=== PATIENT | female | born 1995 | race Caucasian/White ===

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

== ENCOUNTER 2019-01-29 07:22 | Outpatient (CLI) | payer OTHER | END 2019-01-29 07:23 | disposition critical access hospital (66) | LOC: EMS 07:22 | PROVIDERS: ATTEND Surgery | DX: R56.9 Unspecified convulsions (principal) | CPT/HCPCS: A0425; A0427 ==

== ENCOUNTER 2019-01-29 08:01 | Emergency (ER) | payer OTHER ==
[2019-01-29] MEDS ORDERED: ONDANSETRON 4 MG/2 ML VIAL IVP STA (08:20)
[2019-01-29] MEDS ORDERED: KETOROLAC 30 MG/ML VIAL IVP STA (08:20)
[2019-01-29] MEDS ORDERED: SODIUM CHLORIDE 0.9% 1,000 ML IV ONE (08:20)
--- NOTE | 2019-01-29 08:22 | ED Physician Documentation ---
PD HPI SEIZURE - Stated complaint Stated Complaint: POSS SZ - Chief complaint Chief Complaint: General - History obtained from History obtained from: Patient, Friend, EMS - History of Present Illness Timing - onset: How many minutes ago Witnessed: Witnessed (The patient was standing in the kitchen making some food and felt a little bit lightheaded abruptly. Her partner heard a thud from the other room and came immediately in and saw the patient on the ground on the floor with general seizure movement activity and some snoring breathing and some this ulceration of the lips. This lasted for just less than a minute and then she seemed a little confused for a few minutes and then became more alert. She was able to answer questions fairly clearly by the time of EMS arrival. She did have some headache. She complained of some neck and upper back pain. She denied any prior similar episodes. She had been feeling well otherwise the last few days with normal food and fluid intake and no fever chills or other illness. She had been on Wellbutrin for the past month or so for treatment of depression and states it also helped with smoking cessation as an unplanned benefit. She had increased dose a couple weeks ago and had been feeling okay with it. No other medications.) Number of seizures: Single, Lasted minutes (1) Description of seizure activity: Generalized Injury during seizure: Fell, Head injury, Neck injury Associated symptoms: Headache. No: Vision changes, Chest pain, Dyspnea, Nausea / vomiting History of seizures: First seizure. No: Known seizure disorder Contributing factors: Other (new medication a month ago, Wellbutrin. No other medications.). No: Low blood sugar, Substance abuse, EtOH withdrawal, Fever, Sleep deprivation Similar symptoms before: Has not had sx before Review of Systems Constitutional: denies: Fever, Chills, Myalgias Nose: denies: Rhinorrhea / runny nose, Congestion Throat: denies: Sore throat Cardiac: denies: Chest pain / pressure, Palpitations Respiratory: denies: Dyspnea, Cough GI: denies: Abdominal Pain, Nausea, Vomiting, Diarrhea Skin: denies: Abrasion (s), Laceration (s) Neurologic: denies: Focal weakness, Numbness, Altered mental status PD PAST MEDICAL HISTORY - Past Medical History Cardiovascular: None Respiratory: None Neuro: None Endocrine/Autoimmune: None Psych: Depression, Anxiety - Past Surgical History Past Surgical History: Yes General: Appendectomy - Present Medications Home Medications: Ambulatory Orders Medication Instructions Recorded Confirmed Norgestrel-Ethinyl Estradiol 1 tab PO DAILY 09/07/14 09/07/14 [Elinest-28 Tablet] RX: Ibuprofen 600 mg PO Q6H PRN #30 tablet 09/07/14 RX: lamoTRIgine [LaMICtal] 100 mg PO DAILY 09/07/14 09/07/14 Sertraline HCl [Zoloft] 100 mg PO DAILY 09/07/14 09/07/14 Sulfamethoxazole/Trimethoprim 1 tab PO DAILY 09/07/14 09/07/14 [Bactrim Ds Tablet] - Allergies Allergies/Adverse Reactions: Allergies Allergy/AdvReac Type Severity Reaction Status Date / Time Sulfa (Sulfonamide Allergy Hives Verified 01/29/19 08:06 Antibiotics) - Social History Does the pt smoke?: No Smoking Status: Former smoker Does the pt drink ETOH?: No Does the pt have substance abuse?: No - Immunizations Immunizations are current?: Yes PD ED PE NORMAL - Vitals Vital signs reviewed: Yes - General General: Alert and oriented X 3, No acute distress, Well developed/nourished - HEENT HEENT: PERRL, EOMI, Ears normal, Pharynx benign, Other (Some tenderness in the back of the head. There is also some tenderness in the lower cervical area and upper thoracic. No obvious deformity. She has a normal neuro exam with motor and sensory. She is awake and conversant.) - Neck Neck: Supple, no meningeal sign, No adenopathy - Cardiac Cardiac: RRR, No murmur - Respiratory Respiratory: Clear bilaterally - Abdomen Abdomen: Soft, Non tender - Derm Derm: Normal color, Warm and dry - Extremities Extremities: No tenderness to palpate, Normal ROM s pain - Neuro Neuro: Alert and oriented X 3, otorhinolaryngologist 2-12 intact, No motor deficit, No sensory deficit, Normal speech, Other Eye Opening: Spontaneous Motor: Obeys Commands Verbal: Oriented GCS Score: 15 - Psych Psych: Normal mood, Normal affect Results - Vitals Vitals: Vital Signs - 24 hr 01/29/19 01/29/19 01/29/19 08:02 09:24 09:59 Temperature 36.8 C 36.6 C Heart Rate 110 H 91 87 Respiratory 22 15 17 Rate Blood Pressure 136/99 H 118/78 123/78 O2 Saturation 100 100 100 Oxygen O2 Source Room air - Labs Labs: Laboratory Tests 01/29/19 01/29/19 01/29/19 08:28 08:28 08:47 WBC 6.1 RBC 3.86 L Hgb 11.7 L Hct 34.3 L MCV 88.9 MCH 30.3 MCHC 34.1 RDW 12.7 Plt Count 265 MPV 8.2 Neut # (Auto) 3.6 Lymph # (Auto) 1.8 [place] # (Auto) 0.5 Eos # (Auto) 0.2 Baso # (Auto) 0.0 Absolute Nucleated RBC 0.00 Nucleated RBC % 0.0 Sodium 138 Potassium 4.0 Chloride 109 Carbon Dioxide 21 Anion Gap 8.0 BUN 12 Creatinine 0.8 Estimated GFR (MDRD) 91 Glucose 107 H Calcium 8.7 Magnesium 1.9 Total Bilirubin 0.2 AST 16 ALT 23 Alkaline Phosphatase 32 L Total Protein 7.1 Albumin 3.9 Globulin 3.2 Albumin/Globulin Ratio 1.2 Lipase 20 L Urine Color Urine Clarity Urine pH Ur Specific [place] Urine Protein Urine Glucose (UA) Urine Ketones Urine Occult Blood Urine Nitrite Urine Bilirubin Urine Urobilinogen Ur Leukocyte Esterase Ur Microscopic Review Urine Culture Comments Urine HCG, Qual Urine Opiates Screen NEGATIVE Ur Oxycodone Screen NEGATIVE Urine Methadone Screen NEGATIVE Ur Propoxyphene Screen NEGATIVE Ur Barbiturates Screen NEGATIVE Ur Tricyclics Screen NEGATIVE Ur Phencyclidine Scrn NEGATIVE Ur Amphetamine Screen NEGATIVE U Methamphetamines Scrn NEGATIVE U Benzodiazepines Scrn NEGATIVE Urine Cocaine Screen NEGATIVE U Cannabinoids Screen NEGATIVE 01/29/19 08:47 WBC RBC Hgb Hct MCV MCH MCHC RDW Plt Count MPV Neut # (Auto) Lymph # (Auto) [place] # (Auto) Eos # (Auto) Baso # (Auto) Absolute Nucleated RBC Nucleated RBC % Sodium Potassium Chloride Carbon Dioxide Anion Gap BUN Creatinine Estimated GFR (MDRD) Glucose Calcium Magnesium Total Bilirubin AST ALT Alkaline Phosphatase Total Protein Albumin Globulin Albumin/Globulin Ratio Lipase Urine Color YELLOW Urine Clarity CLEAR Urine pH 6.0 Ur Specific [place] 1.020 Urine Protein NEGATIVE Urine Glucose (UA) NEGATIVE Urine Ketones NEGATIVE Urine Occult Blood NEGATIVE Urine Nitrite NEGATIVE Urine Bilirubin NEGATIVE Urine Urobilinogen 0.2 (NORMAL) Ur Leukocyte Esterase NEGATIVE Ur Microscopic Review NOT INDICATED Urine Culture Comments NOT INDICATED Urine HCG, Qual NEGATIVE Urine Opiates Screen Ur Oxycodone Screen Urine Methadone Screen Ur Propoxyphene Screen Ur Barbiturates Screen Ur Tricyclics Screen Ur Phencyclidine Scrn Ur Amphetamine Screen U Methamphetamines Scrn U Benzodiazepines Scrn Urine Cocaine Screen U Cannabinoids Screen - Rads (name of study) head CT Radiology: Prelim report reviewed (no acute process), See rad report cervical and thoracic CT Radiology: Prelim report reviewed (no fractures nor acute process), See rad report PD MEDICAL DECISION MAKING - ED course Complexity details: reviewed results, re-evaluated patient (still appearing well on recheck. ), considered differential (Consider the possibility of a syncopal episode with seizure-like activity. However there is not really obvious cause for syncope. Otherwise she is on a new medication this past month with seizure as a potential side effect. More inclined to think that is the cause given a normal work-up. We will have her decrease the dose at this point as I would presume the seizures are only somewhat dose-related. I would not want her to just stop it abruptly. She has an appointment with her primary care later today coincidentally. She should discuss it with her primary care.), d/w patient Departure - Departure Disposition: 01 Home, Self Care Clinical Impression: Observed seizure-like activity, Side effect of medication Condition: Stable Record reviewed to determine appropriate education?: Yes Instructions: ED Seizure New Onset Unk Cause Follow-Up: Lon Beasley MD [Primary Care Provider] - Comments: Decrease your Wellbutrin to half dose for the next week. Follow-up with your primary care regarding further tapering or changing to different medicine. Your basic imaging and lab tests are normal here. Presume your seizure-like episode was a side effect of the Wellbutrin as it is a listed side effect. However it could have been just a fainting episode but there is no obvious good reason for that. Given the cause is likely medication side effect, I would not see reason to label it as epilepsy nor report it. However I would suggest not driving, swimming, working on ladders or dangerous places for the next week or so until you are on lower dose of medicine and feeling well. Discharge Date/Time: 01/29/19 10:34
[2019-01-29 08:34] LABS: BASOPHILS % (AUTO) 0.7 %; EOSINOPHILS # (AUTO) 0.2 10^3/uL (0.0-0.7); EOSINOPHILS % (AUTO) 2.6 %; HGB - HEMOGLOBIN 11.7 g/dL (12.0-16.0); LYMPHOCYTES # (AUTO) 1.8 10^3/uL (1.5-3.5); LYMPHOCYTES % (AUTO) 29.4 %; MEAN CORPUSCULAR HEMOGLOBIN 30.3 pg (27.0-31.0); MEAN CORPUSCULAR HGB CONC 34.1 g/dL (32.0-36.0); MEAN CORPUSCULAR VOLUME 88.9 fL (81.0-99.0); MEAN PLATELET VOLUME 8.2 fL (7.9-10.8); MONOCYTES # (AUTO) 0.5 10^3/uL (0.0-1.0); MONOCYTES % (AUTO) 7.9 %; NEUTROPHILS # (AUTO) 3.6 10^3/uL (1.5-6.6); NEUTROPHILS % (AUTO) 59.1 %; PLT - PLATELET COUNT 265 10^3/uL (130-450); RED BLOOD COUNT 3.86 10^6/uL (4.20-5.40); RED CELL DISTRIBUTION WIDTH 12.7 % (12.0-15.0); WHITE BLOOD COUNT 6.1 x10^3/uL (4.8-10.8)
[2019-01-29 08:48] LABS: ALBUMIN 3.9 g/dL (3.2-5.5); ALBUMIN/GLOBULIN RATIO 1.2 (1.0-2.2); BILIRUBIN,TOTAL 0.2 mg/dL (0.2-1.0); CALCIUM 8.7 mg/dL (8.5-10.3); CREATININE 0.8 mg/dL (0.4-1.0); MAGNESIUM 1.9 mg/dL (1.7-2.8); TOTAL PROTEIN 7.1 g/dL (6.7-8.2)
[2019-01-29 09:00] LABS: MUDS CUTOFF CONCENTRATIONS CUTOFF CONC BELOW:
[2019-01-29 09:06] LABS: BILIRUBIN,URINE NEGATIVE (NEGATIVE); GLUCOSE, URINE (UA) NEGATIVE (NEGATIVE); KETONES,URINE (UA) NEGATIVE (NEGATIVE); LEUKOCYTE ESTERASE, URINE NEGATIVE (NEGATIVE); NITRITE,URINE NEGATIVE (NEGATIVE); OCCULT BLOOD,URINE NEGATIVE (NEGATIVE); PROTEIN,URINE NEGATIVE (NEGATIVE); UROBILINOGEN,URINE 0.2 (NORMAL) E.U./dL (NORMAL)
[2019-01-29 09:08] LABS: CLARITY,URINE CLEAR (CLEAR); HCG UR QUAL NEGATIVE
--- NOTE | 2019-01-29 09:19 | CT Report ---
Reason: fall/seizure, with head and neck pain Procedure Date: 01/29/2019 Accession Number: [id number] / [id number] Procedure: CT - HEAD WO CPT Code: FULL RESULT: EXAM: CT HEAD EXAM DATE: 01/29/2019 09:07 AM. CLINICAL HISTORY: Fall/seizure, with head and neck pain. COMPARISON: CT CERVICAL SPINE W/O 01/29/2019 9:00 AM. TECHNIQUE: Multiaxial CT images were obtained from the foramen magnum to the vertex. Reformats: Sagittal and coronal. IV contrast: None. In accordance with CT protocol optimization, one or more of the following dose reduction techniques were utilized for this exam: automated exposure control, adjustment of mA and/or KV based on patient size, or use of iterative reconstructive technique. FINDINGS: Parenchyma: No intraparenchymal hemorrhage. No evidence of mass, midline shift, or CT findings of infarction. Estrella-white differentiation is distinct. Extraaxial Spaces: Normal for age. No subdural or epidural collections identified. Ventricles: Normal in size and position. Sinuses and Orbits: Imaged paranasal sinuses, orbits, and mastoids show no significant abnormality. Bones: No evidence of fracture or calvarial defect. Other: None. IMPRESSION: Normal head CT. No intracranial hemorrhage, mass-effect, or other acute intracranial abnormality. RADIA
[2019-01-29 09:21] LABS: AMPHETAMINE SCREEN,URINE NEGATIVE (NEGATIVE); BENZODIAZEPINES SCREEN, URINE NEGATIVE (NEGATIVE); COCAINE SCREEN URINE NEGATIVE (NEGATIVE); METHADONE SCREEN, URINE NEGATIVE (NEGATIVE); METHAMPHETAMINES SCREEN, URINE NEGATIVE (NEGATIVE); OPIATE SCREEN, URINE NEGATIVE (NEGATIVE); OXYCODONE SCREEN, URINE NEGATIVE (NEGATIVE); PROPOXYPHENE SCREEN, URINE NEGATIVE (NEGATIVE); TRICYCLIC ANTIDEPRESSANT,URINE NEGATIVE (NEGATIVE)
--- NOTE | 2019-01-29 09:23 | CT Report ---
Reason: fall/seizure, with head and neck pain Procedure Date: 01/29/2019 Accession Number: [id number] / [id number] Procedure: CT - CERVICAL SPINE WO CPT Code: FULL RESULT: EXAM: CT CERVICAL SPINE WITHOUT CONTRAST DATE: 01/29/2019 09:07 AM. HISTORY: Fall/seizure, with head and neck pain. COMPARISONS: CT HEAD W/O 01/29/2019 9:00 AM. TECHNIQUE: Thin-section axial images were acquired of the cervical spine without contrast. Post-processing: Coronal and sagittal reformats. Other: None. In accordance with CT protocol optimization, one or more of the following dose reduction techniques were utilized for this exam: automated exposure control, adjustment of mA and/or KV based on patient size, or use of iterative reconstructive technique. FINDINGS: Alignment: There is mild reversal of normal cervical lordosis, which may be positional. No scoliosis or spondylolisthesis. Bones: No fracture or bone lesion. Interspace Levels/Facets: C1-C2: Unremarkable. C2-C3: Unremarkable. C3-C4: Unremarkable. C4-C5: Unremarkable. C5-C6: Unremarkable. C6-C7: Unremarkable. C7-T1: Unremarkable. Musculature: Normal. No fatty atrophy. Other: The paravertebral and prevertebral soft tissues are unremarkable. The lung apices are clear. IMPRESSION: 1. No fracture or other acute osseous abnormality of the cervical spine. 2. Mild reversal of normal cervical lordosis, which may be positional. No scoliosis or spondylolisthesis. RADIA
--- NOTE | 2019-01-29 09:39 | CT Report ---
Reason: fall/seizure, with head and neck pain Procedure Date: 01/29/2019 Accession Number: [id number] / [id number] Procedure: CT - THORACIC SPINE WO CPT Code: FULL RESULT: CT THORACIC SPINE WITHOUT CONTRAST INDICATION: 23-year-old female. Fall/seizure with head, neck and upper back pain. TECHNIQUE: Helical scan with reconstruction into 2 mm axial images. In addition, sagittal and coronal reformations have been generated. Images are available in bone and soft tissue windows. In accordance with CT protocol optimization, one or more of the following dose reduction techniques were utilized for this exam: automated exposure control, adjustment of mA and/or KV based on patient size, or use of iterative reconstructive technique. COMPARISON: None. FINDINGS: Motion artifact limits assessment at the C7 and T1 levels. Grossly no fracture is identified. Otherwise, there has been relatively good visualization of the thoracic vertebrae. No acute fracture is identified. There is minor concavity of the superior endplate of T4, consistent with the sequela of minor old, healed, central type compression fracture. In addition, there is minimal anterior wedging of the T7 vertebral body, consistent with the sequela of old healed endplate compression fracture. There is a minimal dextroconvex thoracic curvature with apex at about the T11-T12 disk level. Alignment in the sagittal plane appears normal. There is evidence of multilevel degenerative disk disease. Schmorl node deformities are seen in the vertebral endplates at all levels from T6-T7 to T12-L1. Evaluation for focal disk herniation/spinal stenosis is limited on this study performed without intrathecal contrast; however, grossly no significant stenosis is demonstrated. The neural foramina appear widely patent throughout. The regional paraspinous soft tissues are unremarkable. IMPRESSION: No acute thoracic spine pathology is identified. In particular, no fracture is demonstrated.
[2019-01-29 10:00] VITALS: BP 123/78
[2019-01-29] MEDS ORDERED: MORPHINE 10 MG/ML VIAL IVP STA (10:00)
== END 2019-01-29 10:34 | disposition home or self-care (01) ==
LOC: EDUNIT# → ED 08:01
DX: R56.9 Unspecified convulsions (principal); T43.295A Adverse effect of other antidepressants, initial encounter; Y92.000 Kitchen of unspecified non-institutional (private) residence as the place of occurrence of the external cause; Z87.891 Personal history of nicotine dependence
CPT/HCPCS: 36415; 70450; 72125; 72128; 80053; 80306; 81001; 81003; 81025; 83690; 83735; 85025; 87086; 96361; 96374; 96375; 99284

== ENCOUNTER 2019-02-02 23:56 | Emergency (ER) | payer OTHER ==
[2019-02-03] MEDS ORDERED: FLUoxetine 10 MG CAPSULE PO STA (00:32)
--- NOTE | 2019-02-03 02:06 | ED Physician Documentation ---
History of Present Illness - Stated complaint Stated Complaint: WITHDRAWAL - Chief complaint Chief Complaint: MHE - History obtained from History obtained from: Patient, Family - History of Present Illness Timing: Today - Additonal information Additional information: 23 y/o female was successful with the use of bupropion with improvement in well being and she was able to quit smoking. She felt things were going well increased her dose, had a seizure and had to stop the bupropion and she was switched to prozac. She was doing well with this as well until she missed a does and became acutely dystonic. She has not taken her dose of prozac today. 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 : Chronic bladder infection HEENT: None Psych: Depression, Anxiety, Panic attacks, ADD/ADHD, Eating disorder Musculoskeletal: Scoliosis Derm: Psoriasis - Past Surgical History Past Surgical History: Yes General: Appendectomy - Present Medications Home Medications: Ambulatory Orders Medication Instructions Recorded Confirmed Norgestrel-Ethinyl Estradiol 1 tab PO DAILY 09/07/14 02/03/19 [Elinest-28 Tablet] RX: Ibuprofen 600 mg PO Q6H PRN #30 tablet 09/07/14 02/03/19 Acetaminophen [Tylenol Extra 1,000 mg PO DAILY PRN 02/03/19 02/03/19 Strength] FLUoxetine [PROzac] 20 mg PO DAILY 02/03/19 02/03/19 RX: HYDROcod/ACETAM 5/325 [Lane 5 mg PO Q4HR PRN 02/03/19 02/03/19 5/325] RX: Propranolol [Inderal] 10 mg PO PRN PRN 02/03/19 02/03/19 - Allergies Allergies/Adverse Reactions: Allergies Allergy/AdvReac Type Severity Reaction Status Date / Time Sulfa (Sulfonamide Allergy Hives Verified 02/03/19 00:08 Antibiotics) - Social History Does the pt smoke?: No Smoking Status: Current some day smoker Does the pt drink ETOH?: No ETOH Use: Wine Does the pt have substance abuse?: No Substance Use and Type: Marijuana - Immunizations Immunizations are current?: Yes - POLST Patient has POLST: No PD ED PE NORMAL - Vitals Vital signs reviewed: Yes (normal ) - General General: Alert and oriented X 3, Well developed/nourished - HEENT HEENT: Atraumatic, PERRL, EOMI, Ears normal, Moist mucous membranes, Pharynx benign, Dentition benign - Neck Neck: Supple, no meningeal sign, No bony TTP - Cardiac Cardiac: RRR, No murmur - Respiratory Respiratory: No respiratory distress, Clear bilaterally - Abdomen Abdomen: Normal bowel sounds, Soft, Non tender, Non distended, No organomegaly - Back Back: No CVA TTP, No spinal TTP - Derm Derm: Normal color, Warm and dry, No rash - Extremities Extremities: No deformity, No edema - Neuro Neuro: Alert and oriented X 3, blow mold operator 2-12 intact, No motor deficit, No sensory deficit, Normal speech Eye Opening: Spontaneous Motor: Obeys Commands Verbal: Oriented GCS Score: 15 - Psych Psych: Other (mood and affect are labile ) Results - Vitals Vitals: Oxygen O2 Source Room air PD MEDICAL DECISION MAKING - ED course Complexity details: reviewed old records, re-evaluated patient, considered differential, d/w patient, d/w family ED course: 23-year-old female who was placed onto Wellbutrin 5 weeks ago increased her dose about 4 days after she started and about 5 weeks into it she developed an acute seizure. She has been taken off of the Wellbutrin she is been put on the Prozac she is been taking 20 mg of Prozac per day and she missed her dose of Prozac this morning and she was doing well yesterday she is quite happy and interactive and this evening she began to experience some symptoms not feeling well and she is come to the emergency department with vague symptomatology. She was initially resistant to taking the Prozac when she took the Prozac she felt well. Departure - Departure Disposition: 01 Home, Self Care Clinical Impression: Underdosing of selective serotonin reuptake inhibitor (SSRI) Qualifiers: Encounter type: initial encounter Qualified Code(s): T43.226A - Underdosing of selective serotonin reuptake inhibitors, initial encounter Condition: Stable Instructions: SSRIs Follow-Up: Lon Beasley MD [Primary Care Provider] - Comments: It appears you are sensitive to the absence of the prozac. You will likely need a prolonged taper to get off of this medication. Discharge Date/Time: 02/03/19 02:16
[2019-02-03 02:15] VITALS: BP 111/84
== END 2019-02-03 02:16 | disposition home or self-care (01) ==
LOC: ED 23:56
DX: G24.8 Other dystonia (principal); T43.226A Underdosing of selective serotonin reuptake inhibitors, initial encounter; Z91.138 Patient's unintentional underdosing of medication regimen for other reason; F32.9 Major depressive disorder, single episode, unspecified; F17.200 Nicotine dependence, unspecified, uncomplicated
CPT/HCPCS: 99282; 99283; A9270

== ENCOUNTER 2019-12-19 15:14 | Outpatient (CLI) | payer OTHER ==
--- NOTE | 2019-12-19 22:42 | DEXA Report ---
Reason: COMPRESSION FRACTURE Procedure Date: 12/19/2019 Accession Number: [id number] / [id number] Procedure: DEX - Dexa Spine and/or Hip CPT Code: Final Report FULL RESULT: PROCEDURE: Dexa Spine and/or Hip INDICATIONS: COMPRESSION FRACTURE TECHNIQUE: Dual energy x-ray absorptiometry (DXA) was performed on a ERUCES System. Regions measured are the AP Spine, femoral neck, and if needed forearm. COMPARISON: None. FINDINGS: Lumbar Spine: Bone Mineral Density 1.407 g/cm/cm,T score 1.7, normal Left Hip: Bone Mineral Density 1.232 g/cm/cm,T score 1.8, normal Left Femoral Neck: Bone Mineral Density 1.217 g/cm/cm, T score 1.3, normal (T score greater or equal to -1.0: NORMAL) (T score from -1.1 to -2.4: OSTEOPENIA) (T score less than or equal to -2.5 to: OSTEOPOROSIS) Impression: 1. Normal bone mineral density. 2. No elevated fracture risk. Patients with diagnosis of osteoporosis or osteopenia should have regular bone mineral density assessment. For those eligible for Medicare, routine testing is allowed once every 2 years. Testing frequency can be increased for patients who have rapidly progressing disease or for those who are receiving medical therapy to restore bone mass. Reviewed by: Kiah Merrill MD on 12/19/2019 10:41 PM PDT Approved by: Kiah Merrill MD on 12/19/2019 10:41 PM PDT Station ID: [id number]
== END 2019-12-19 15:15 | disposition home or self-care (01) ==
LOC: DI 15:14
PROVIDERS: ATTEND Nurse Practitioner Family
DX: M48.50XD Collapsed vertebra, not elsewhere classified, site unspecified, subsequent encounter for fracture with routine healing (principal)
CPT/HCPCS: 77080

== ENCOUNTER 2020-06-15 18:54 | Emergency (ER) | payer OTHER ==
[2020-06-15 19:17] LABS: BILIRUBIN,URINE NEGATIVE (NEGATIVE); GLUCOSE, URINE (UA) NEGATIVE (NEGATIVE); KETONES,URINE (UA) NEGATIVE (NEGATIVE); LEUKOCYTE ESTERASE, URINE NEGATIVE (NEGATIVE); NITRITE,URINE NEGATIVE (NEGATIVE); OCCULT BLOOD,URINE NEGATIVE (NEGATIVE); PH,URINE 6.5 PH (5.0-7.5); PROTEIN,URINE NEGATIVE (NEGATIVE); UROBILINOGEN,URINE 0.2 (NORMAL) E.U./dL (NORMAL)
[2020-06-15 19:21] LABS: CLARITY,URINE CLEAR (CLEAR); HCG UR QUAL NEGATIVE
[2020-06-15] MEDS ORDERED: MECLIZINE 12.5 MG TABLET PO STA (19:30)
--- NOTE | 2020-06-15 19:36 | ED Physician Documentation ---
History of Present Illness - Stated complaint Stated Complaint: DIZZY,HEADACHE,NAUSEA - Chief complaint Chief Complaint: Neuro - History obtained from History obtained from: Patient - History of Present Illness Timing: Yesterday Pain level max: 5 Pain level now: 3 - Additonal information Additional information: Patient is a 25-year-old female who presents to the emergency department with intermittent headaches for the past month. Occasionally feels off balance like the room is spinning. Today these feelings worsened. Came in for evaluation. She is on Adderall at home. No other medications. No recent illnesses. Worse with movement, better with lying still. She states that she "feels like she is on a boat". No numbness or tingling. No focal neurological deficits. No vision changes. Headache is described as mild, gradual in onset and it does move around her head. She states she has had migraines in the past, but this feels different Review of Systems Constitutional: denies: Fever, Chills Throat: denies: Sore throat Cardiac: denies: Chest pain / pressure Respiratory: denies: Cough GI: denies: Abdominal Pain, Nausea, Vomiting, Diarrhea : denies: Now EGA Skin: denies: Rash Musculoskeletal: denies: Neck pain, Back pain Neurologic: reports: Headache. 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 : Chronic bladder infection HEENT: None Psych: Depression, Anxiety, Panic attacks, ADD/ADHD, Eating disorder Musculoskeletal: Scoliosis Derm: Psoriasis - Past Surgical History Past Surgical History: Yes General: Appendectomy - Present Medications Home Medications: Ambulatory Orders Medication Instructions Recorded Confirmed Dextroamphetamine/Amphetamine 15 mg PO QPM 06/15/20 06/15/20 [Adderall 15 mg Tablet] Dextroamphetamine/Amphetamine 25 mg PO DAILY 06/15/20 06/15/20 [Adderall Xr 25 mg Capsule] Meclizine HCl [Antivert] 25 - 50 mg PO Q6H PRN #30 tablet 06/15/20 - Allergies Allergies/Adverse Reactions: Allergies Allergy/AdvReac Type Severity Reaction Status Date / Time Sulfa (Sulfonamide Allergy Hives Verified 02/03/19 00:08 Antibiotics) - Social History Does the pt smoke?: Yes Smoking Status: Current every day smoker Does the pt drink ETOH?: No ETOH Use: Wine Does the pt have substance abuse?: No - Immunizations Immunizations are current?: Yes - POLST Patient has POLST: No PD ED PE NORMAL - Vitals Vital signs reviewed: Yes - General General: Alert and oriented X 3, No acute distress - HEENT HEENT: Atraumatic, PERRL, Ears normal, Moist mucous membranes, Pharynx benign - Neck Neck: Supple, no meningeal sign, No bony TTP, No JVD, No bruit - Cardiac Cardiac: RRR - Respiratory Respiratory: No respiratory distress, Clear bilaterally - Abdomen Abdomen: Soft, Non tender, Non distended - Back Back: No spinal TTP - Derm Derm: Warm and dry - Extremities Extremities: No edema, No calf tenderness / cord - Neuro Neuro: Alert and oriented X 3, director process improvement 2-12 intact, No motor deficit, No sensory deficit, Other (+ hallpike to the R. Horizontal nystagmus) Eye Opening: Spontaneous Motor: Obeys Commands Verbal: Oriented GCS Score: 15 - Psych Psych: Normal mood, Normal affect Results - Vitals Vitals: Vital Signs - 24 hr 06/15/20 06/15/20 06/15/20 19:00 19:24 20:23 Temperature 37.1 C 36.6 C Heart Rate 79 77 72 Respiratory 16 16 16 Rate Blood Pressure 129/85 H 126/92 H 120/66 O2 Saturation 100 100 100 Oxygen O2 Source Room air - Labs Labs: Laboratory Tests 06/15/20 06/15/20 06/15/20 19:03 19:30 19:30 WBC 6.5 RBC 4.27 Hgb 12.8 Hct 37.2 MCV 87.1 MCH 30.0 MCHC 34.4 RDW 12.3 Plt Count 280 MPV 8.4 Neut # (Auto) 3.4 Lymph # (Auto) 2.6 [place] # (Auto) 0.4 Eos # (Auto) 0.1 Baso # (Auto) 0.0 Absolute Nucleated RBC 0.00 Nucleated RBC % 0.0 Sodium 139 Potassium 3.5 Chloride 106 Carbon Dioxide 24 Anion Gap 9.0 BUN 7 Creatinine 0.5 Estimated GFR (MDRD) 153 Glucose 91 Calcium 9.7 Total Bilirubin 1.0 AST 19 ALT 36 Alkaline Phosphatase 54 Total Protein 7.7 Albumin 4.9 Globulin 2.8 Albumin/Globulin Ratio 1.8 Urine Color YELLOW Urine Clarity CLEAR Urine pH 6.5 Ur Specific [place] 1.010 Urine Protein NEGATIVE Urine Glucose (UA) NEGATIVE Urine Ketones NEGATIVE Urine Occult Blood NEGATIVE Urine Nitrite NEGATIVE Urine Bilirubin NEGATIVE Urine Urobilinogen 0.2 (NORMAL) Ur Leukocyte Esterase NEGATIVE Ur Microscopic Review NOT INDICATED Urine Culture Comments NOT INDICATED Urine HCG, Qual NEGATIVE - Rads (name of study) head CT Radiology: Prelim report reviewed, EMP read contemporaneously, See rad report (normal) PD MEDICAL DECISION MAKING - ED course Complexity details: reviewed results, re-evaluated patient, considered differential, d/w patient ED course: Patient feels better after meclizine. No acute findings on head CT. Normal neurological exam other than positive Hallpike to the right. Horizontal nystagmus. Ambulating well. No significant lab abnormalities. No evidence of tumor, intracranial hemorrhage. Patient counseled regarding signs and symptoms for which I believe and urgent re-evaluation would be necessary. Patient with good understanding of and agreement to plan and is comfortable going home at this time This document was made in part using voice recognition software. While efforts are made to proofread this document, sound alike and grammatical errors may occur. Patient is ambulating with a normal gait throughout the emergency department. No gait abnormality. Departure - Departure Disposition: 01 Home, Self Care Clinical Impression: Vertigo Condition: Good Instructions: ED Vertigo Unspecified Follow-Up: CHRISTIN WADE ARNP [Primary Care Provider] - Within 1 week Prescriptions: Meclizine HCl [Antivert] 25 - 50 mg PO Q6H PRN #30 tablet PRN Reason: Vertigo Comments: You can use the meclizine as needed for vertigo. This should improve over the next few days. Return if you worsen. Follow-up with your doctor for further care. Occasionally this may linger and you could need vestibular rehab. Your doctor would refer you to this if needed. Discharge Date/Time: 06/15/20 20:41
[2020-06-15 19:41] LABS: BASOPHILS % (AUTO) 0.3 %; EOSINOPHILS # (AUTO) 0.1 10^3/uL (0.0-0.7); EOSINOPHILS % (AUTO) 1.2 %; HGB - HEMOGLOBIN 12.8 g/dL (12.0-16.0); LYMPHOCYTES # (AUTO) 2.6 10^3/uL (1.5-3.5); LYMPHOCYTES % (AUTO) 39.6 %; MEAN CORPUSCULAR HGB CONC 34.4 g/dL (32.0-36.0); MEAN CORPUSCULAR VOLUME 87.1 fL (81.0-99.0); MEAN PLATELET VOLUME 8.4 fL (7.9-10.8); MONOCYTES # (AUTO) 0.4 10^3/uL (0.0-1.0); MONOCYTES % (AUTO) 5.5 %; NEUTROPHILS # (AUTO) 3.4 10^3/uL (1.5-6.6); NEUTROPHILS % (AUTO) 53.1 %; PLT - PLATELET COUNT 280 10^3/uL (130-450); RED BLOOD COUNT 4.27 10^6/uL (4.20-5.40); RED CELL DISTRIBUTION WIDTH 12.3 % (12.0-15.0); WHITE BLOOD COUNT 6.5 x10^3/uL (4.8-10.8)
[2020-06-15 19:52] LABS: ALBUMIN 4.9 g/dL (3.2-5.5); ALBUMIN/GLOBULIN RATIO 1.8 (1.0-2.2); CALCIUM 9.7 mg/dL (8.5-10.3); CREATININE 0.5 mg/dL (0.4-1.0); TOTAL PROTEIN 7.7 g/dL (6.7-8.2)
--- NOTE | 2020-06-15 19:54 | CT Report ---
PROCEDURE: HEAD WO INDICATIONS: new headache, vertigo TECHNIQUE: Noncontrast 4.5 mm thick angled axial sections acquired from the foramen magnum to the vertex. For r adiation dose reduction, the following was used: automated exposure control, adjustment of mA and/or kV according to patient size. COMPARISON: 01/29/2019. FINDINGS: Image quality: Excellent. CSF spaces: Basal cisterns are patent. No extra-axial fluid collections. Ventricles are normal in size and shape. Brain: No midline shift. No intracranial masses or hemorrhage. Estrella-white matter interface is norm al. Skull and face: Calvarium and visualized facial bones are intact, without suspicious lesions. Sinuses: Visualized sinuses and mastoids are clear. IMPRESSION: CT head without acute intracranial abnormalities. No evidence for mass or mass effect. Reviewed by: Mitch Murcia MD on 06/15/2020 6:53 PM [facility] Approved by: Mitch Murcia MD on 06/15/2020 6:53 PM [facility] Station ID: [id number]
[2020-06-15 20:24] VITALS: BP 120/66
== END 2020-06-15 20:41 | disposition home or self-care (01) ==
LOC: ED 18:54
DX: H81.21 Vestibular neuronitis, right ear (principal); F17.200 Nicotine dependence, unspecified, uncomplicated
CPT/HCPCS: 36415; 70450; 80053; 81003; 81025; 85025; 99284; A9270; 81001; 87086

== ENCOUNTER 2020-08-08 02:03 | Emergency (ER) | payer OTHER ==
--- NOTE | 2020-08-08 02:09 | ED Physician Documentation ---
PD HPI UPPER EXT INJURY - Stated complaint Stated Complaint: L HAND INJ - History obtained from History obtained from: Patient - History of Present Illness Location: Left, Hand Type of injury: Blunt / blow Where injury occurred: Home Timing - onset: How many hours ago (2) Timing - details: Abrupt onset Pain level now: 4 Improved by: Rest Worsened by: Moving, Palpating Associated symptoms: Swelling. No: Weakness, Numbness Contributing factors: No: Anticoagulated, Prior ortho surgery, Work related Recently seen: Not recently seen - Additonal information Additional information: patient is right hand-dominant. 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 The dog bit at patient's sleeve (did not bite patient, just the clothing), and when patient reflexively pulled her hand back, she struck her (left) hand on the bedframe. She c/o pain left hand, predominantly dorsal surface over metacarpals. 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 : Chronic bladder infection HEENT: None Psych: Depression, Anxiety, Panic attacks, ADD/ADHD, Eating disorder Musculoskeletal: Scoliosis Derm: Psoriasis - Past Surgical History Past Surgical History: Yes General: Appendectomy - Present Medications Home Medications: Ambulatory Orders Medication Instructions Recorded Confirmed Dextroamphetamine/Amphetamine 15 mg PO QPM 06/15/20 08/08/20 [Adderall 15 mg Tablet] Dextroamphetamine/Amphetamine 25 mg PO DAILY 06/15/20 08/08/20 [Adderall Xr 25 mg Capsule] - Allergies Allergies/Adverse Reactions: Allergies Allergy/AdvReac Type Severity Reaction Status Date / Time cefprozil [From Cefzil] AdvReac Hives Verified 08/08/20 02:15 - Social History Does the pt smoke?: Yes Smoking Status: Current every day smoker Does the pt drink ETOH?: No Does the pt have substance abuse?: No - Immunizations Immunizations are current?: Yes - POLST Patient has POLST: No PD ED PE NORMAL - Vitals Vital signs reviewed: Yes - General General: Alert and oriented X 3, No acute distress, Well developed/nourished - Extremities Extremities: No deformity PD ED PE EXPANDED - Extremities Extremities: Limited ROM (limited extension and flexion of left hand (fingers, thumb) due to pain ). No: Deformity PATRICIO UE/Hands Visual: 1 - tenderness Results - Vitals Vitals: Vital Signs - 24 hr 08/08/20 08/08/20 08/08/20 02:12 02:51 03:39 Temperature 36.3 C L Heart Rate 85 Respiratory 16 15 15 Rate Blood Pressure 129/82 H O2 Saturation 100 Oxygen O2 Source Room air - Rads (name of study) left hand xrays Radiology: Prelim report reviewed, See rad report PD MEDICAL DECISION MAKING - ED course Complexity details: reviewed results, re-evaluated patient, considered differential, d/w patient Departure - Departure Disposition: 01 Home, Self Care Clinical Impression: Contusion of hand, left Qualifiers: Encounter type: initial encounter Qualified Code(s): S60.222A - Contusion of left hand, initial encounter Condition: Good Instructions: ED Contusion Hand Follow-Up: CHRISTIN WADE, ELECTRICAL MAINTENANCE WORKER [Primary Care Provider] - (4-5 days if still having symptoms) Discharge Date/Time: 08/08/20 03:40
[2020-08-08 02:15] VITALS: BP 129/82
--- NOTE | 2020-08-08 08:55 | XRAY Report ---
PROCEDURE: Hand 3 View LT INDICATIONS: PAIN/TENDERNESS L HAND.. HIT A BED POST L HAND. TECHNIQUE: 6 views of the hand(s) acquired. COMPARISON: None FINDINGS: Bones: No fractures or dislocations. No suspicious bony lesions. Soft tissues: No suspicious soft tissue calcifications. IMPRESSION: No evidence acute bony abnormality of the left hand. A preliminary report with the above findings was provided at the time of the study by [facility]. Reviewed by: Michelet Lehman MD on 08/08/2020 7:54 AM [facility] Approved by: Michelet Lehman MD on 08/08/2020 7:54 AM [facility] Station ID: [id number]
== END 2020-08-08 03:40 | disposition home or self-care (01) ==
LOC: ED 02:03
DX: S60.222A Contusion of left hand, initial encounter (principal); W22.09XA Striking against other stationary object, initial encounter; Y93.83 Activity, rough housing and horseplay; Y92.009 Unspecified place in unspecified non-institutional (private) residence as the place of occurrence of the external cause; F17.200 Nicotine dependence, unspecified, uncomplicated
CPT/HCPCS: 99282; 99283

== ENCOUNTER 2020-09-02 04:53 | Emergency (ER) | payer OTHER ==
[2020-09-02 05:30] LABS: BASOPHILS % (AUTO) 0.4 %; EOSINOPHILS # (AUTO) 0.2 10^3/uL (0.0-0.7); EOSINOPHILS % (AUTO) 1.8 %; HCT - HEMATOCRIT 37.9 % (37.0-47.0); LYMPHOCYTES # (AUTO) 2.8 10^3/uL (1.5-3.5); LYMPHOCYTES % (AUTO) 34.5 %; MEAN CORPUSCULAR HEMOGLOBIN 30.3 pg (27.0-31.0); MEAN CORPUSCULAR HGB CONC 34.3 g/dL (32.0-36.0); MEAN CORPUSCULAR VOLUME 88.3 fL (81.0-99.0); MEAN PLATELET VOLUME 8.6 fL (7.9-10.8); MONOCYTES # (AUTO) 0.6 10^3/uL (0.0-1.0); MONOCYTES % (AUTO) 7.7 %; NEUTROPHILS # (AUTO) 4.5 10^3/uL (1.5-6.6); NEUTROPHILS % (AUTO) 55.4 %; PLT - PLATELET COUNT 321 10^3/uL (130-450); RED BLOOD COUNT 4.29 10^6/uL (4.20-5.40); RED CELL DISTRIBUTION WIDTH 12.4 % (12.0-15.0); WHITE BLOOD COUNT 8.2 x10^3/uL (4.8-10.8)
[2020-09-02 05:31] LABS: BILIRUBIN,URINE NEGATIVE (NEGATIVE); GLUCOSE, URINE (UA) NEGATIVE (NEGATIVE); KETONES,URINE (UA) NEGATIVE (NEGATIVE); LEUKOCYTE ESTERASE, URINE NEGATIVE (NEGATIVE); NITRITE,URINE NEGATIVE (NEGATIVE); OCCULT BLOOD,URINE MODERATE (NEGATIVE); PH,URINE 7.5 PH (5.0-7.5); PROTEIN,URINE NEGATIVE (NEGATIVE); UROBILINOGEN,URINE 0.2 (NORMAL) E.U./dL (NORMAL)
[2020-09-02 05:33] LABS: CLARITY,URINE HAZY (CLEAR); HCG UR QUAL NEGATIVE
[2020-09-02 05:36] LABS: AMORPHOUS SEDIMENT,UR Few /LPF; BACTERIA,URINE Few /HPF (None Seen); SQUAMOUS EPITHELIAL CELL,UR FEW Squamous (<= Few); WBC,URINE 0-3 /HPF (0-5)
[2020-09-02] MEDS ORDERED: ONDANSETRON 4 MG/2 ML VIAL IVP STA (05:38)
[2020-09-02] MEDS ORDERED: HYDROmorphone 1 MG/ML CARPUJECT IVP STA (05:38)
--- NOTE | 2020-09-02 05:42 | ED Physician Documentation ---
History of Present Illness - Stated complaint Stated Complaint: CRAMPS - Chief complaint Chief Complaint: Abd Pain - History obtained from History obtained from: Patient - Additonal information Additional information: Patient comes emergency department chief complaint of vaginal bleeding and pelvic pain, worse on the right, that woke her up from sleep within the last couple of hours. Patient states that she was on control pills for about 10 years and several months ago, got off of them. She states she had no menstrual periods for 90 days and then in July, she had a very heavy period for 3 days. Patient states that since then, she had not had any bleeding for 45 days, until now. She states she noticed a little bit of pink discharge last night when she went to bed, but woke up in the middle of the night with lots of bleeding and severe pelvic pain. The patient states she was feeling fine yesterday. Patient states she has been a little bit nauseated and has had a headache for the last couple of days. No fevers. She does note that she took a test about a week and a half ago and that this showed a very faint positive. She states she took 1 the next morning and it showed about the same. She has not taken another test since. She has no history of other pregnancies prior. No other complaints at this time. Review of Systems Ten Systems: 10 systems reviewed and negative Constitutional: reports: Reviewed and negative Eyes: reports: Reviewed and negative Ears: reports: Reviewed and negative Nose: reports: Reviewed and negative Throat: reports: Reviewed and negative Cardiac: reports: Reviewed and negative Respiratory: reports: Reviewed and negative GI: reports: Abdominal Pain, Nausea. 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 : Chronic bladder infection HEENT: None Psych: Depression, Anxiety, Panic attacks, ADD/ADHD, Eating disorder Musculoskeletal: Scoliosis Derm: Psoriasis - Past Surgical History Past Surgical History: Yes General: Appendectomy - Present Medications Home Medications: Ambulatory Orders Medication Instructions Recorded Confirmed Dextroamphetamine/Amphetamine 15 mg PO QPM 06/15/20 08/08/20 [Adderall 15 mg Tablet] Dextroamphetamine/Amphetamine 25 mg PO DAILY 06/15/20 08/08/20 [Adderall Xr 25 mg Capsule] - Allergies Allergies/Adverse Reactions: Allergies Allergy/AdvReac Type Severity Reaction Status Date / Time cefprozil [From Cefzil] AdvReac Hives Verified 08/08/20 02:15 - Social History Does the pt smoke?: Yes Smoking Status: Current every day smoker Does the pt drink ETOH?: No Does the pt have substance abuse?: No - Immunizations Immunizations are current?: Yes - POLST Patient has POLST: No PD ED PE NORMAL - Vitals Vital signs reviewed: Yes - General General: Alert and oriented X 3, Other (Patient is moaning and breathing through pursed lips. She appears to be in discomfort.) - HEENT HEENT: Atraumatic, PERRL, EOMI, Moist mucous membranes - Neck Neck: Supple, no meningeal sign - Cardiac Cardiac: RRR, No murmur - Respiratory Respiratory: No respiratory distress, Clear bilaterally - Abdomen Abdomen: Soft, Non distended, Other (Marked tenderness throughout lower abdomen and pelvic area. Right lower quadrant/pelvis with more tenderness than left.) - Female Female : Other (Moderate amount of reddish-brown blood in vaginal canal. No tissue or clots. No lesions. Moderate right adnexal tenderness without mass. No left adnexal tenderness. No cervical motion tenderness.) - Derm Derm: Warm and dry - Extremities Extremities: No deformity - Neuro Neuro: Alert and oriented X 3 - Psych Psych: Normal mood, Normal affect Results - Vitals Vitals: Vital Signs - 24 hr 09/02/20 04:59 Temperature 36.9 C Heart Rate 121 H Respiratory 24 Rate Blood Pressure 141/79 H O2 Saturation 100 Oxygen O2 Source Room air - Labs Labs: Laboratory Tests 09/02/20 09/02/20 09/02/20 05:15 05:15 05:15 WBC 8.2 RBC 4.29 Hgb 13.0 Hct 37.9 MCV 88.3 MCH 30.3 MCHC 34.3 RDW 12.4 Plt Count 321 MPV 8.6 Neut # (Auto) 4.5 Lymph # (Auto) 2.8 [place] # (Auto) 0.6 Eos # (Auto) 0.2 Baso # (Auto) 0.0 Absolute Nucleated RBC 0.00 Nucleated RBC % 0.0 Sodium 140 Potassium 4.1 Chloride 104 Carbon Dioxide 26 Anion Gap 10.0 BUN 15 Creatinine 0.6 Estimated GFR (MDRD) 124 Glucose 100 Calcium 9.9 Total Bilirubin 0.7 AST 17 ALT 24 Alkaline Phosphatase 66 Total Protein 7.7 Albumin 4.7 Globulin 3.0 Albumin/Globulin Ratio 1.6 Lipase 25 HCG, Quant Urine Color YELLOW Urine Clarity HAZY Urine pH 7.5 Ur Specific [place] 1.015 Urine Protein NEGATIVE Urine Glucose (UA) NEGATIVE Urine Ketones NEGATIVE Urine Occult Blood MODERATE H Urine Nitrite NEGATIVE Urine Bilirubin NEGATIVE Urine Urobilinogen 0.2 (NORMAL) Ur Leukocyte Esterase NEGATIVE Urine RBC 11-25 H Urine WBC 0-3 Ur Squamous Epith Cells FEW Squamous Amorphous Sediment Few Urine Bacteria Few Ur Microscopic Review INDICATED Urine Culture Comments NOT INDICATED Urine HCG, Qual NEGATIVE 09/02/20 05:15 WBC RBC Hgb Hct MCV MCH MCHC RDW Plt Count MPV Neut # (Auto) Lymph # (Auto) [place] # (Auto) Eos # (Auto) Baso # (Auto) Absolute Nucleated RBC Nucleated RBC % Sodium Potassium Chloride Carbon Dioxide Anion Gap BUN Creatinine Estimated GFR (MDRD) Glucose Calcium Total Bilirubin AST ALT Alkaline Phosphatase Total Protein Albumin Globulin Albumin/Globulin Ratio Lipase HCG, Quant < 0.60 Urine Color Urine Clarity Urine pH Ur Specific [place] Urine Protein Urine Glucose (UA) Urine Ketones Urine Occult Blood Urine Nitrite Urine Bilirubin Urine Urobilinogen Ur Leukocyte Esterase Urine RBC Urine WBC Ur Squamous Epith Cells Amorphous Sediment Urine Bacteria Ur Microscopic Review Urine Culture Comments Urine HCG, Qual PD MEDICAL DECISION MAKING - ED course Complexity details: considered differential, d/w patient ED course: The patient appeared significantly uncomfortable and I was concerned about the history of a faintly positive test within the last couple of weeks and onset of the current symptoms now. I discussed with the patient that my biggest concern is the potential for ectopic . As such, IV was placed and patient was worked up with laboratory studies, including quantitative hCG. These results are pending at this time. Ultrasound was also ordered to evaluate further. Pt was signed out to Dr. Parisi at change of shift, pending results of work-up and final disposition.
[2020-09-02 05:43] LABS: ALBUMIN 4.7 g/dL (3.2-5.5); ALBUMIN/GLOBULIN RATIO 1.6 (1.0-2.2); BILIRUBIN,TOTAL 0.7 mg/dL (0.2-1.0); CALCIUM 9.9 mg/dL (8.5-10.3); CREATININE 0.6 mg/dL (0.4-1.0); POTASSIUM 4.1 mmol/L (3.5-5.0); TOTAL PROTEIN 7.7 g/dL (6.7-8.2)
[2020-09-02] MEDS ORDERED: KETOROLAC 30 MG/ML VIAL IVP STA (06:15)
--- NOTE | 2020-09-02 07:26 | ED Physician Documentation ---
ED Addendum - Addendum Addendum: 09/02/20 07:23 25-year-old female with acute right lower quadrant abdominal pain that awoke her from sleep has had some issue with menstrual cramping pain her pain today is out of proportion to menstrual cramps and has awakened her from sleep abruptly. She has had a pelvic ultrasound showing a small right ovarian cyst. The patient is examined at bedside does not seem to have much in the way of tenderness on examination and a bedside ultrasound is performed on the right kidney and there is evidence of mild hydronephrosis which is not present on the left side. Both kidneys are sonographically nontender. A CT scan of the abdomen and pelvis without contrast is ordered to consider ureterolithiasis as a cause for the patient's pain. She had good improvement in her pain with Dilaudid and Toradol and her pain has started to come back. 09/02/20 08:17 CT ab/pel without: Impression: Limited exam due to lack of IV and oral contrast. No acute findings on unenhanced CT. Large volume of formed stool throughout the colon which may indicate constipation and could be a potential source of abdominal pain. 09/02/20 08:19 U/S pelvis: Impression: 1. Normal pelvic ultrasound with color Doppler for a menstruating female. 09/02/20 08:28 I have gone back into the patient's room to reexamine the patient she is nontender on exam and she had a very dramatic presentation of her pain that was doubling her over. I am concerned that this may be related to constipation as this is the most obvious finding on the CT scan. This was not apparent by history. There is a cyst on the right ovary that appears "normal ". The patient has started menstruation today and the timing for a problem with pain from the cyst is off. Despite the mild hydronephrosis seen on bedside ultrasound there is no evidence of renal lithiasis. I have reevaluated the patient and confirmed history and we will give the patient a dose of milk of magnesia and I will send her home with instructions for both the ovarian cyst and constipation.
--- NOTE | 2020-09-02 08:13 | CT Report ---
PROCEDURE: Abdomen/Pelvis WO INDICATIONS: RLQ pain non-tender TECHNIQUE: Noncontrast 5 mm thick sections acquired from the diaphragms to the symphysis. 5 mm coronal and sagi ttal reformats were then performed. For radiation dose reduction, the following was used: automated exposure control, adjustment of mA and/or kV according to patient size. COMPARISON: None. FINDINGS: Exam limited by the lack of both oral and IV contrast. There is no abnormally dilated or obviously thickened loop of bowel. No pericolonic or mesenteric inf lammatory changes. The appendix is not definitively visualized, with right lower quadrant evaluation greatly limited by the lack of IV contrast. No hydronephrosis or hydroureter. Normal course and caliber of the ureters. The unenhanced liver, spleen, pancreas, and gallbladder are within normal limits. Nonaneurysmal abdominal aorta. Small volume free pelvic fluid. Grossly unremarkable uterus and ovaries. Urinary bladder is normally distended and normal in appearance. No acute or suspicious osseous lesion. Included portions of the lung bases are clear. IMPRESSION: Limited exam due to the lack of IV and oral contrast. No acute finding by unenhanced CT. Large volume of formed stool throughout the colon which may indicate constipation and could be a pote ntial source of abdominal pain. Reviewed by: Zeeshan Starks MD on 09/02/2020 8:11 AM PDT Approved by: Zeeshan Starks MD on 09/02/2020 8:11 AM PDT Station ID: [id number]
--- NOTE | 2020-09-02 08:18 | Ultrasound Report ---
PROCEDURE: Pelvic Complete INDICATIONS: pelvic pain, worsening bleeding. TECHNIQUE: Real-time transabdominal scanning was performed of the pelvic organs, with image documentation. COMPARISON: None. FINDINGS: The uterine body measures 2.8 x 4.6 x 8.7 cm. No uterine mass. Normal appearing endometrium measuring 8-9 mm in double layer thickness. Both ovaries normal in size and appearance. Both ovaries demonstrate normal color Doppler flow signal . Trace free fluid is within physiologic normal limits. IMPRESSION: Normal pelvic ultrasound. Reviewed by: Zeeshan Starks MD on 09/02/2020 8:16 AM PDT Approved by: Zeeshan Starks MD on 09/02/2020 8:16 AM PDT Station ID: [id number]
[2020-09-02] MEDS ORDERED: MAGNESIUM HYDROXIDE 2,400 MG/30 ML UDC PO STA (08:32)
[2020-09-02 08:34] VITALS: BP 115/73
--- OUTSIDE RECORDS SUMMARY | 2020-09-08 23:10 | EXTERNAL MEDICAL SUMMARY RPT | Continuity of Care Document ---
:1995 Demographics Phone Unavailable Preferred Language Unknown Marital Status Unknown Buddhist Affiliation Unknown Race Unknown Ethnic Group Unknown Author Organization [facility] Address [address] [place] [address] Phone Social History date description facility [id number]
== END 2020-09-02 08:48 | disposition home or self-care (01) ==
LOC: ED 04:53
DX: K59.00 Constipation, unspecified (principal); N83.201 Unspecified ovarian cyst, right side; N13.30 Unspecified hydronephrosis; F17.200 Nicotine dependence, unspecified, uncomplicated
CPT/HCPCS: 36415; 74176; 76856; 80053; 81001; 81025; 83690; 84702; 85025; 96374; 96375; 99284; A9270; J1170; 81003; 87086

== ENCOUNTER 2020-09-05 22:57 | Emergency (ER) | payer OTHER ==
--- NOTE | 2020-09-05 23:06 | ED Physician Documentation ---
PD HPI ABD PAIN - Stated complaint Stated Complaint: FEMALE - History obtained from History obtained from: Patient - History of Present Illness Timing - onset: Today, How many days ago (3) Timing - duration: Days (She had lower abd pain 3 days ago and seen in ER with labs/pelvic/pelvic US/and abd CT. No firm diagnosis. Right ovarian cyst noted 2.1 cm with mild pelvic free fluid. Copious stool. No other acute. She says she had good BM the past 2 days. Has had minimal lower abd cramping, until this PM.) Timing - details: Abrupt onset (has had the cramping pain for 3 days, improved and mild. Then abrupt "pop" feeling this evening with significant pain. This is tapering enroute. She had consulted [facility] and was suggested to come back to ER.) Quality: Cramping, Aching, Sharp (this evening), Pain Location: RLQ, Suprapubic Associated symptoms: Vaginal bleeding (just menstrual type bleeding the past 2-3 days.). No: Fever, Nausea, Vomiting Recently seen: Emergency Dept (3 days ago) Review of Systems Constitutional: denies: Fever, Chills Nose: denies: Rhinorrhea / runny nose, Congestion Throat: denies: Sore throat Respiratory: denies: Cough GI: reports: Abdominal Pain. denies: Nausea, Vomiting, Diarrhea (had 2 large BMs in the past 2 days, so does not feel still constipated.) : reports: Vaginal bleeding, Irregular menses (has been somewhat irregular. Would like to resume OCPs (has been off them for a year-harjinder).). 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 : Chronic bladder infection HEENT: None Psych: Depression, Anxiety, Panic attacks, ADD/ADHD, Eating disorder Musculoskeletal: Scoliosis Derm: Psoriasis - Past Surgical History Past Surgical History: Yes General: Appendectomy - Present Medications Home Medications: Ambulatory Orders Medication Instructions Recorded Confirmed Dextroamphetamine/Amphetamine 15 mg PO QPM 06/15/20 09/05/20 [Adderall 15 mg Tablet] Dextroamphetamine/Amphetamine 25 mg PO DAILY 06/15/20 09/05/20 [Adderall Xr 25 mg Capsule] HYDROcod/ACETAM 5/325 [[place] 5/325] 1 - 2 tablet PO Q6H PRN #12 tablet 09/02/20 09/05/20 Norethindrone-E.estradiol-Iron 1 each PO DAILY #1 packet 09/06/20 [Fatou 24 Fe 1 mg-20 Mcg Tablet] - Allergies Allergies/Adverse Reactions: Allergies Allergy/AdvReac Type Severity Reaction Status Date / Time bupropion [From Wellbutrin] Allergy Unknown Verified 09/05/20 23:07 cefprozil [From Cefzil] AdvReac Hives Verified 09/05/20 23:07 - Social History Does the pt smoke?: Yes Smoking Status: Current every day smoker Does the pt drink ETOH?: No Does the pt have substance abuse?: No - Immunizations Immunizations are current?: Yes - POLST Patient has POLST: No PD ED PE NORMAL - Vitals Vital signs reviewed: Yes - General General: Alert and oriented X 3, No acute distress, Well developed/nourished - Cardiac Cardiac: RRR - Respiratory Respiratory: Clear bilaterally - Abdomen Abdomen: Normal bowel sounds, Soft, Non distended, No organomegaly, Other (tender RLQ and suprapubic area with some mild guarding. No percussion, rebound nor referred tenderness. ) - Female Female : Deferred (was performed just 3 days ago) - Rectal Rectal: Deferred - Back Back: No CVA TTP - Derm Derm: Normal color, Warm and dry - Extremities Extremities: No edema, No calf tenderness / cord - Neuro Neuro: Alert and oriented X 3, No motor deficit, Normal speech Results - Vitals Vitals: Vital Signs - 24 hr 09/05/20 09/05/20 09/06/20 23:02 23:46 00:33 Temperature 36.8 C Heart Rate 112 H 91 87 Respiratory 16 16 16 Rate Blood Pressure 135/90 H 137/93 H 131/92 H O2 Saturation 100 100 100 09/06/20 00:53 Temperature 37.0 C Heart Rate Respiratory Rate Blood Pressure O2 Saturation Oxygen O2 Source Room air - Rads (name of study) pelvic U/S Radiology: Prelim report reviewed (no acute abnormality), See rad report PD MEDICAL DECISION MAKING - ED course Complexity details: reviewed results (Repeat ultrasound this evening to ensure no significant free fluid nor ovarian torsion was negative for acute findings. Prior cyst not mentioned, so could have been ruptured cyst and the size would not have left a notable amount of free fluid per se, if just the cyst and not bleeding. ), considered differential (Had been evaluated for lower abdominal p ain just 3 days ago with negative test and labs as well as vaginal lumen exam. She had had CT and ultrasound with findings of some constipation and also a right small ovarian cyst. Abrupt pain tonight with local tenderness.), d/w patient Departure - Departure Disposition: 01 Home, Self Care Clinical Impression: Right lower quadrant abdominal pain, Ruptured cyst of ovary Condition: Stable Record reviewed to determine appropriate education?: Yes Follow-Up: CHRISTIN WADE ARNP [Primary Care Provider] - Prescriptions: Norethindrone-E.estradiol-Iron [Fatou 24 Fe 1 mg-20 Mcg Tablet] 1 each PO DAILY #1 packet Comments: Your ultrasound today appears normal. Presumption would be the small cyst you had ruptured and is now resolved. This would account for the abrupt pain and some cramping in inflammation feeling that you are having. There is no notable amount of free fluid so does not suggest ongoing internal bleeding or such. There is good blood flow to both ovaries. I would anticipate some crampiness in the next couple of days and you can use ibuprofen or Tylenol if needed. You can start the control tablets once daily when your period ends. Return if significant worsening. Discharge Date/Time: 09/06/20 00:54
[2020-09-06 00:33] VITALS: BP 131/92
--- NOTE | 2020-09-06 10:12 | Ultrasound Report ---
PROCEDURE: Pelvic w/Transvag+Doppler Ltd INDICATIONS: pelvic pain worse tonight TECHNIQUE: Real-time scanning was performed of the pelvic organs, with image documentation. Additional endovagi nal scanning was necessary due to incomplete visualization of the adnexal and endometrial structures by transabdominal scanning. COMPARISON: None. FINDINGS: No pathologic free abdominal or pelvic fluid. Uterus: Uterus is anteverted and normal in size at 7.8 x 4.3 x 3.0 cm. The endometrium measures 3 m m in combined thickness. A simple 4 mm endometrial cyst is present. Ovaries: Right ovary measures 3.96 x 2.20 x 2.47 cm, a volume of 11.27 mL. Left ovary measures 3.13 x 1.73 x 1 .96 cm, a volume of 5.55 mm. Normal Doppler appearance. Normal venous and arterial spectral waveforms . IMPRESSION: No acute findings. No evidence of ovarian torsion. No significant discrepancy in the preliminary report. Reviewed by: Shar Donahue on 09/06/2020 9:11 AM [facility] Approved by: Shar Donahue on 09/06/2020 9:11 AM [facility] Station ID: [id number]
--- OUTSIDE RECORDS SUMMARY | 2020-09-09 02:38 | EXTERNAL MEDICAL SUMMARY RPT | Continuity of Care Document ---
:1995 Demographics Phone Unavailable Preferred Language Unknown Marital Status Unknown Anglican Affiliation Unknown Race Unknown Ethnic Group Unknown Author Organization [facility] Address [address] [place] [address] Phone Social History date description facility [phone]
== END 2020-09-06 00:54 | disposition home or self-care (01) ==
LOC: ED 22:57
DX: N83.201 Unspecified ovarian cyst, right side (principal); R10.31 Right lower quadrant pain; F17.200 Nicotine dependence, unspecified, uncomplicated
CPT/HCPCS: 93976; 99284

== ENCOUNTER 2020-09-22 18:11 | Outpatient (CLI) | payer OTHER ==
--- NOTE | 2020-09-23 11:28 | XRAY Report ---
PROCEDURE: Foot 3 View LT INDICATIONS: PAIN OF TOE OF LEFT FOOT TECHNIQUE: 3 views of the foot were acquired. COMPARISON: None FINDINGS: Bones: No fractures or dislocations. No suspicious bony lesions. Soft tissues: No tibiotalar joint effusion. Achilles tendon appears normal. IMPRESSION: No trauma found, source of pain is not seen. Reviewed by: Paul Antoine MD on 09/23/2020 11:27 AM PDT Approved by: Paul Antoine MD on 09/23/2020 11:27 AM PDT Station ID: [id number]
== END 2020-09-22 18:12 | disposition home or self-care (01) ==
LOC: DI.S 18:11
PROVIDERS: ATTEND Physician Assistant
DX: M79.675 Pain in left toe(s) (principal)

== ENCOUNTER 2021-04-18 12:12 | Outpatient (CLI) | payer OTHER | END 2021-04-18 12:13 | disposition critical access hospital (66) | LOC: EMS 12:12 | DX: R45.851 Suicidal ideations (principal) | CPT/HCPCS: A0425; A0429 ==

== ENCOUNTER 2021-04-18 12:55 | Emergency (ER) | payer OTHER ==
--- NOTE | 2021-04-18 13:01 | ED Physician Documentation ---
PD HPI MHE - Stated complaint Stated Complaint: MHE - History obtained from History obtained from: Patient, EMS - Additional information Additional information: 25-year-old woman with chronic depression treated with BuSpar brought in by paula marshall today for increasing suicidal ideation over the last couple weeks and more acutely after the last couple of days. No specific inciting factor. She did cut herself on the left arm today and also took a couple of pain pills that the other night with thoughts of overdose but did not take an excessive amount. She denies other drug or alcohol use. Her called her mother who called 911 today. She does not want to be here. 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 : Chronic bladder infection HEENT: None Psych: Depression, Anxiety, Panic attacks, ADD/ADHD, Eating disorder Musculoskeletal: Scoliosis Derm: Psoriasis - Past Surgical History Past Surgical History: Yes General: Appendectomy - Present Medications Home Medications: Ambulatory Orders Medication Instructions Recorded Confirmed Dextroamphetamine/Amphetamine 15 mg PO QPM 06/15/20 09/05/20 [Adderall 15 mg Tablet] Dextroamphetamine/Amphetamine 25 mg PO DAILY 06/15/20 09/05/20 [Adderall Xr 25 mg Capsule] HYDROcod/ACETAM 5/325 [[place] 5/325] 1 - 2 tablet PO Q6H PRN #12 tablet 09/02/20 09/05/20 Norethindrone-E.estradiol-Iron 1 each PO DAILY #1 packet 09/06/20 [Fatou 24 Fe 1 mg-20 Mcg Tablet] - Allergies Allergies/Adverse Reactions: Allergies Allergy/AdvReac Type Severity Reaction Status Date / Time bupropion [From Wellbutrin] Allergy Unknown Verified 09/05/20 23:07 cefprozil [From Cefzil] AdvReac Hives Verified 09/05/20 23:07 - Social History Does the pt smoke?: Yes Smoking Status: Current every day smoker Does the pt drink ETOH?: No Does the pt have substance abuse?: No - Immunizations Immunizations are current?: Yes - POLST Patient has POLST: No PD ED PE NORMAL - Vitals Vital signs reviewed: Yes - General General: Alert and oriented X 3, Other (Slightly poor eye contact but otherwise cooperative) - HEENT HEENT: PERRL, EOMI - Neck Neck: Supple, no meningeal sign, No bony TTP - Cardiac Cardiac: RRR, No murmur - Respiratory Respiratory: No respiratory distress, Clear bilaterally - Abdomen Abdomen: Normal bowel sounds, Soft, Non tender - Back Back: No CVA TTP, No spinal TTP - Derm Derm: Normal color, Warm and dry - Extremities Extremities: No edema, No calf tenderness / cord - Neuro Neuro: Alert and oriented X 3, Normal speech - Psych Psych: Other (Slightly depressed mood, normal affect) Results - Vitals Vitals: Vital Signs - 24 hr 04/18/21 04/18/21 04/18/21 12:56 13:59 15:00 Temperature 37.5 C Heart Rate 78 68 71 Respiratory 16 16 16 Rate Blood Pressure 122/79 113/75 134/91 H O2 Saturation 100 98 100 Oxygen O2 Source Room air PD MEDICAL DECISION MAKING - ED course ED course: 25-year-old woman with chronic depression presents with suicidal ideation. Seen by social work and a safety plan was formulated and rapid outpatient follow-up. Per social work she does not fit criteria for DCR evaluation. Discuss a ketamine infusion and the patient would like to try that. Departure - Departure Disposition: 01 Home, Self Care Clinical Impression: Depression Qualifiers: Depression Type: major depressive disorder Major depression recurrence: recurrent Active/Remission status: currently active Major depression episode severity: severe Psychotic features: without psychotic features Qualified Code(s): F33.2 - Major depressive disorder, recurrent severe without psychotic features Condition: Good Instructions: ED Depression Comments: Follow-up with your counselor tomorrow, return if worsening or if new symptoms develop. Continue current medications. You did receive an infusion of ketamine today. Hopefully this will help with your depressive symptoms for several weeks, maybe even a month and a half.
[2021-04-18] MEDS ORDERED: KETAMINE 25 MG in SODIUM CHLORIDE 0.9% 100ML 100 ML IV STA (13:44)
[2021-04-18 15:02] VITALS: BP 134/91
== END 2021-04-18 15:30 | disposition home or self-care (01) ==
LOC: EDUNIT# → ED 12:55
DX: F33.2 Major depressive disorder, recurrent severe without psychotic features (principal); F17.200 Nicotine dependence, unspecified, uncomplicated; F41.9 Anxiety disorder, unspecified; F90.9 Attention-deficit hyperactivity disorder, unspecified type; R45.851 Suicidal ideations
CPT/HCPCS: 96365; 99283

== ENCOUNTER 2021-08-11 10:15 | Outpatient (CLI) | payer OTHER ==
--- NOTE | 2021-08-11 10:37 | XRAY Report ---
PROCEDURE: Hip w/Pelvis 2-3V RT INDICATIONS: X RAY TECHNIQUE: AP pelvis with lateral view(s) of the right hip(s). COMPARISON: September 10, 2014. FINDINGS: BONES/JOINTS: No acute, displaced fracture. No widening of the pubic symphysis. The sacroiliac joints are symmetric. The femoral heads are normal ly seated within the acetabulum. Minimal protuberance of the right femoral neck. SOFT TISSUES: No focal abnormality. IMPRESSION: 1.No acute osseous abnormality. Reviewed by: Christiano White MD on 08/11/2021 10:35 AM [facility] Approved by: Christiano White MD on 08/11/2021 10:35 AM [facility] Station ID: [id number]
[2021-08-11 10:51] LABS: MUDS CUTOFF CONCENTRATIONS CUTOFF CONC BELOW:
[2021-08-11 15:44] LABS: AMPHETAMINE SCREEN,URINE NEGATIVE (NEGATIVE); BARBITURATE SCREEN,UR NEGATIVE (NEGATIVE); BENZODIAZEPINES SCREEN, URINE NEGATIVE (NEGATIVE); COCAINE SCREEN URINE NEGATIVE (NEGATIVE); METHADONE SCREEN, URINE NEGATIVE (NEGATIVE); METHAMPHETAMINES SCREEN, URINE NEGATIVE (NEGATIVE); OPIATE SCREEN, URINE NEGATIVE (NEGATIVE); OXYCODONE SCREEN, URINE NEGATIVE (NEGATIVE); PROPOXYPHENE SCREEN, URINE NEGATIVE (NEGATIVE); THC CANNABINOID SCREEN, URINE NEGATIVE (NEGATIVE); TRICYCLIC ANTIDEPRESSANT,URINE NEGATIVE (NEGATIVE)
== END 2021-08-11 10:16 | disposition home or self-care (01) ==
LOC: DI.S 10:15
PROVIDERS: ATTEND Nurse Practitioner Family
DX: M25.551 Pain in right hip (principal); F90.9 Attention-deficit hyperactivity disorder, unspecified type
CPT/HCPCS: 80306

== ENCOUNTER 2021-09-29 08:00 | Outpatient (CLI) | payer OTHER ==
[2021-09-29 20:18] LABS: BILIRUBIN,URINE NEGATIVE (NEGATIVE); GLUCOSE, URINE (UA) NEGATIVE (NEGATIVE); LEUKOCYTE ESTERASE, URINE TRACE (NEGATIVE); NITRITE,URINE POSITIVE (NEGATIVE); OCCULT BLOOD,URINE NEGATIVE (NEGATIVE); UROBILINOGEN,URINE 1 (NORMAL) E.U./dL (NORMAL)
[2021-09-29 20:19] LABS: CLARITY,URINE CLOUDY (CLEAR)
[2021-09-29 20:29] LABS: BACTERIA,URINE Many /HPF (None Seen); RBC,URINE 0-5 /HPF (0-5); SQUAMOUS EPITHELIAL CELL,UR RARE Squamous (<= Few); WBC,URINE >25 /HPF (0-5)
== END 2021-09-29 08:01 | disposition home or self-care (01) ==
LOC: LAB 08:00
PROVIDERS: ATTEND Emergency Medicine
DX: R30.0 Dysuria (principal)
CPT/HCPCS: 81001; 87086; 87181

== ENCOUNTER 2021-10-12 18:47 | Outpatient (CLI) | payer OTHER | END 2021-10-12 23:59 | disposition home or self-care (01) | LOC: LAB 18:47 | PROVIDERS: ATTEND Emergency Medicine | DX: L02.612 Cutaneous abscess of left foot (principal) | CPT/HCPCS: 87070; 87205 ==

== ENCOUNTER 2021-11-03 21:42 | Emergency (ER) | payer OTHER ==
--- NOTE | 2021-11-03 22:12 | ED Physician Documentation ---
PD HPI ABD PAIN - Stated complaint Stated Complaint: POST SURGERY PAIN - Chief complaint Chief Complaint: Abd Pain - History obtained from History obtained from: Patient - Additional information Additional information: Patient is a 26-year-old female with no significant past medical history presenting for evaluation of abdominal pain. Patient had a diagnostic laparoscopy today at [facility] for concerns of endometriosis. She her surgery was at 11 AM and discharged home In the early afternoon. She was given Tylenol, ibuprofen, oxycodone for pain. She had taken these medications as prescribed including 2 doses of 5 mg of oxycodone this afternoon but her pain is worsened over the last 2 hours and she was unable to reach her surgeon. There were no findings of endometriosis on The scope. Patient has not had a bowel movement and she does not feel like she is passing gas. She has a patch for nausea.She denies hematuria or vaginal discharge.Per her at the bedside she has been more active including moving a 5 pound bag of Epson salt. Review of Systems Constitutional: denies: Fever Nose: denies: Congestion Cardiac: denies: Chest pain / pressure, Palpitations Respiratory: denies: Dyspnea, Cough GI: reports: Abdominal Pain. 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 : Chronic bladder infection HEENT: None Psych: Depression, Anxiety, Panic attacks, ADD/ADHD, Eating disorder Musculoskeletal: Scoliosis Derm: Psoriasis - Past Surgical History Past Surgical History: Yes General: Appendectomy - Present Medications Home Medications: Ambulatory Orders Medication Instructions Recorded Confirmed Dextroamphetamine/Amphetamine 15 mg PO QPM 06/15/20 09/05/20 [Adderall 15 mg Tablet] Dextroamphetamine/Amphetamine 25 mg PO DAILY 06/15/20 09/05/20 [Adderall Xr 25 mg Capsule] ARIPiprazole [Abilify] 10 mg PO DAILY PM 06/05/21 06/05/21 Buspirone HCl 15 mg ORAL BID 06/05/21 06/05/21 Etonogestrel [Nexplanon] 68 mg SQ ONCE 06/05/21 06/05/21 Propranolol [Inderal] 10 - 30 mg PO TID PRN 06/05/21 06/05/21 lamoTRIgine [LaMICtal] 25 mg PO DAILY 06/05/21 06/05/21 - Allergies Allergies/Adverse Reactions: Allergies Allergy/AdvReac Type Severity Reaction Status Date / Time bupropion [From Wellbutrin] Allergy Unknown Verified 11/03/21 21:50 cefprozil [From Cefzil] AdvReac Hives Verified 11/03/21 21:50 - Social History Does the pt smoke?: Yes Smoking Status: Current every day smoker Does the pt drink ETOH?: No Does the pt have substance abuse?: No - Immunizations Immunizations are current?: Yes - POLST Patient has POLST: No PD ED PE NORMAL - General General: Alert and oriented X 3, No acute distress, Well developed/nourished - HEENT HEENT: Atraumatic - Cardiac Cardiac: RRR, No murmur, Strong equal pulses - Respiratory Respiratory: No respiratory distress, Clear bilaterally - Abdomen Abdomen: Normal bowel sounds, Soft, Other (Patient has 2 surgical sites, infraumbilical and right lower abdomen, tenderness is localized to these incision sites, bandages are clean and dry with No evidence of drainage,No visible swelling or erythema) - Derm Derm: No rash - Neuro Neuro: Normal speech - Psych Psych: Normal mood Results - Vitals Vitals: Vital Signs - 24 hr 11/03/21 11/03/21 11/03/21 21:46 23:19 23:44 Temperature 36.6 C Heart Rate 93 80 66 Respiratory 14 16 18 Rate Blood Pressure 129/82 H 120/71 122/66 O2 Saturation 99 99 99 11/04/21 00:06 Temperature Heart Rate Respiratory 16 Rate Blood Pressure O2 Saturation Oxygen O2 Source Room air - Labs Labs: Laboratory Tests 11/03/21 11/03/21 11/03/21 22:15 22:15 23:17 WBC 7.3 RBC 4.03 L Hgb 12.2 Hct 35.9 L MCV 89.1 MCH 30.3 MCHC 34.0 RDW 12.5 Plt Count 274 MPV 8.6 Neut # (Auto) 6.2 Lymph # (Auto) 0.7 L Steele # (Auto) 0.4 Eos # (Auto) 0.0 Baso # (Auto) 0.0 Absolute Nucleated RBC 0.00 Nucleated RBC % 0.0 Sodium 135 Potassium 4.1 Chloride 101 Carbon Dioxide 26 Anion Gap 8.0 BUN 13 Creatinine 0.6 Estimated GFR (MDRD) 123 Glucose 136 H Calcium 9.3 Total Bilirubin 0.5 AST 16 ALT 19 Alkaline Phosphatase 52 Total Protein 7.5 Albumin 4.3 Globulin 3.2 Albumin/Globulin Ratio 1.3 Lipase 31 Urine HCG, Qual NEGATIVE PD MEDICAL DECISION MAKING - ED course Complexity details: reviewed results, re-evaluated patient, d/w patient, d/w family ED course: Due to global and hospital shortage of IV contrast related to Covid [address] pandemic, CT scan ordered without contrast. 2355 - Patient feeling better, pain resolved,Reviewed CT findings. Patient aware of need for follow-up with her surgeon. Patient presenting for evaluation of abdominal pain after Diagnostic laparoscopy today. Vitals are reassuring and patient has mild discomfort at port sites but otherwise abdominal exam is benign. Labs are reassuring and CT without acute findings. Patient does report may be doing more activity today than she was supposed to. Pain well controlled in the emergency department and patient feels comfortable with returning to previous pain regimen set forth by her surgeon. Also recommended using a stool softener. Patient is aware of return precautions. Spouse is at the bedside and also present for conversation with no further questions. Departure - Departure Disposition: 01 Home, Self Care Clinical Impression: Post-operative pain Condition: Stable Instructions: Laparoscopy Pelvic Comments: You were evaluated for abdominal pain. Your labs and CT scan did not show any significant abnormalities. Please continue with the pain medication as set forth by your surgeon. Please make sure to take it easy and adhere to activity restrictions given by your surgeon. I would also recommend you starting a stool softener such as Colace to make sure that you Do not become constipated. Return to the emergency department if you have any worsening symptoms but otherwise please follow-up with your surgeon as previously scheduled. Discharge Date/Time: 11/04/21 00:07
[2021-11-03] MEDS: MORPHINE 2 MG/ML CARPUJECT IVP STA (22:17)
[2021-11-03 22:21] LABS: HCT - HEMATOCRIT 35.9 % (37.0-47.0); HGB - HEMOGLOBIN 12.2 g/dL (12.0-16.0); LYMPHOCYTES # (AUTO) 0.7 10^3/uL (1.5-3.5); LYMPHOCYTES % (AUTO) 9.5 %; MEAN CORPUSCULAR HEMOGLOBIN 30.3 pg (27.0-31.0); MEAN CORPUSCULAR VOLUME 89.1 fL (81.0-99.0); MEAN PLATELET VOLUME 8.6 fL (7.9-10.8); MONOCYTES # (AUTO) 0.4 10^3/uL (0.0-1.0); MONOCYTES % (AUTO) 4.8 %; NEUTROPHILS # (AUTO) 6.2 10^3/uL (1.5-6.6); NEUTROPHILS % (AUTO) 85.4 %; PLT - PLATELET COUNT 274 10^3/uL (130-450); RED BLOOD COUNT 4.03 10^6/uL (4.20-5.40); RED CELL DISTRIBUTION WIDTH 12.5 % (12.0-15.0); WHITE BLOOD COUNT 7.3 x10^3/uL (4.8-10.8)
[2021-11-03 23:03] LABS: ALBUMIN 4.3 g/dL (3.2-5.5); ALBUMIN/GLOBULIN RATIO 1.3 (1.0-2.2); BILIRUBIN,TOTAL 0.5 mg/dL (0.2-1.0); CALCIUM 9.3 mg/dL (8.5-10.3); CREATININE 0.6 mg/dL (0.4-1.0); POTASSIUM 4.1 mmol/L (3.5-5.0); TOTAL PROTEIN 7.5 g/dL (6.7-8.2)
[2021-11-03 23:44] VITALS: BP 122/66
[2021-11-03 23:45] LABS: HCG UR QUAL NEGATIVE
--- NOTE | 2021-11-03 23:45 | CT Report ---
PROCEDURE: Abdomen/Pelvis WO INDICATIONS: had diagnostic Laparoscope today; Increased pain TECHNIQUE: Noncontrast 5 mm thick sections acquired from the diaphragms to the symphysis. 5 mm coronal and sagi ttal reformats were then performed. For radiation dose reduction, the following was used: automated exposure control, adjustment of mA and/or kV according to patient size. COMPARISON: 09/02/2020 . FINDINGS: Image quality: Evaluation limited in the absence of oral and intravenous contrast. Lung bases:There is minimal dependent atelectasis. Heart: Heart is normal in size. ABDOMEN: Liver:Noncontrast evaluation of the liver demonstrates no discrete mass lesion. Gallbladder: Within normal limits without calcified gallstones. Biliary ducts: No biliary ductal dilatation. Pancreas: Unremarkable. Spleen: Normal in size. Adrenal Glands: No adrenal nodules. Kidneys and Ureters: No hydronephrosis. Stomach and Bowel: Stomach, small bowel loops, and colon are normal in caliber and wall thickness. No pericecal inflammatory changes to suggest appendicitis. Appendix appears surgically absent. There is colonic diverticulosis without acute diverticulitis. Peritoneum:There is a small amount of pneumoperitoneum predominantly within the upper abdomen likely related to patient's history of recent laparoscopy. Ventral Wall: No hernia. Abdominal Nodes: No retroperitoneal or mesenteric adenopathy by size criteria. Vessels: Aorta and inferior vena cava are normal in size. PELVIS: Pelvic Organs: Unremarkable. Bladder: Unremarkable. Pelvic Nodes: No enlarged lymph nodes. Miscellaneous: No inguinal hernias are seen. Bones: Visualized osseous structures demonstrate no suspicious focal lesions. IMPRESSION: 1. Limited evaluation in the absence of intravenous and oral contrast. 2. Visualised upper abdomen demonstrates a small amount of pneumoperitoneum predominantly within the right upper quadrant likely related to recent surgery Reviewed by: Daniele Mullins MD on 11/03/2021 11:48 PM PDT Approved by: Daniele Mullins MD on 11/03/2021 11:48 PM PDT Station ID: [id number]
== END 2021-11-04 00:07 | disposition home or self-care (01) ==
LOC: ED 21:42
DX: G89.18 Other acute postprocedural pain (principal); F17.200 Nicotine dependence, unspecified, uncomplicated
CPT/HCPCS: 36415; 80053; 81025; 83690; 85025; 96374; 99282

== ENCOUNTER 2022-04-04 08:00 | Outpatient (CLI) | payer OTHER | END 2022-04-04 23:59 | disposition home or self-care (01) | LOC: LAB.S 08:00 | PROVIDERS: ATTEND Physician Assistant Medical | DX: N30.00 Acute cystitis without hematuria (principal) | CPT/HCPCS: 87086; 87181 ==

== ENCOUNTER 2022-04-13 08:00 | Outpatient (CLI) | payer OTHER | END 2022-04-13 23:59 | disposition home or self-care (01) | LOC: LAB.S 08:00 | PROVIDERS: ATTEND Registered Nurse | DX: N30.00 Acute cystitis without hematuria (principal) | CPT/HCPCS: 87077; 87086; 87181 ==

== ENCOUNTER 2022-04-26 18:30 | Outpatient (CLI) | payer OTHER | END 2022-04-26 18:31 | disposition critical access hospital (66) | LOC: EMS 18:30 | DX: S61.214A Laceration without foreign body of right ring finger without damage to nail, initial encounter (principal); S61.210A Laceration without foreign body of right index finger without damage to nail, initial encounter; S61.432A Puncture wound without foreign body of left hand, initial encounter; W54.0XXA Bitten by dog, initial encounter; Y92.009 Unspecified place in unspecified non-institutional (private) residence as the place of occurrence of the external cause | CPT/HCPCS: A0425; A0429 ==

== ENCOUNTER 2022-04-26 18:59 | Emergency (ER) | payer OTHER ==
[2022-04-26] MEDS ORDERED: TETANUS/DIPHTHERIA/PERTUSSIS 0.5 ML SYRINGE IM ONE (19:14)
[2022-04-26] MEDS ORDERED: AMOX/CLAV 875 MG/125 MG TABLET PO STA (19:14)
[2022-04-26] MEDS ORDERED: HYDROmorphone 1 MG/ML CARPUJECT IM STA (19:22)
--- NOTE | 2022-04-26 19:24 | ED Physician Documentation ---
PD HPI UPPER EXT INJURY - Stated complaint Stated Complaint: DOG BITE - Chief complaint Chief Complaint: Laceration - History obtained from History obtained from: Patient - History of Present Illness Location: Right - Additonal information Additional information: 26-year-old right-handed woman who is up-to-date on tetanus was bitten once on the left hand multiple times on the right hand by her fully immunized [place] Qureshi while she was trying to wrestle a ball out of his mouth at home just prior to arrival. 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 : Chronic bladder infection HEENT: None Psych: Depression, Anxiety, Panic attacks, ADD/ADHD, Eating disorder Musculoskeletal: Scoliosis Derm: Psoriasis - Past Surgical History Past Surgical History: Yes General: Appendectomy - Present Medications Home Medications: Ambulatory Orders Medication Instructions Recorded Confirmed Dextroamphetamine/Amphetamine 20 mg PO QPM 06/15/20 09/05/20 [Adderall 15 mg Tablet] Dextroamphetamine/Amphetamine 30 mg PO DAILY 06/15/20 09/05/20 [Adderall Xr 25 mg Capsule] ARIPiprazole [Abilify] 15 mg PO DAILY PM 06/05/21 06/05/21 Buspirone HCl 20 mg ORAL BID 06/05/21 06/05/21 Etonogestrel [Nexplanon] 68 mg SQ ONCE 06/05/21 06/05/21 lamoTRIgine [LaMICtal] 25 mg PO DAILY 06/05/21 06/05/21 Amox/Clav 875/125 [Augmentin] 1 each PO Q12H #20 tablet 04/26/22 Amoxicillin 875 mg PO BID 04/26/22 04/26/22 Doxycycline [Vibramycin] 100 mg PO BID 04/26/22 04/26/22 HYDROcod/ACETAM 5/325 [Cidra 5/325] 1 - 2 tab PO Q6H PRN #15 tablet 04/26/22 - Allergies Allergies/Adverse Reactions: Allergies Allergy/AdvReac Type Severity Reaction Status Date / Time bupropion [From Wellbutrin] Allergy Unknown Verified 04/26/22 19:10 cefprozil [From Cefzil] AdvReac Hives Verified 11/03/21 21:50 - Social History Does the pt smoke?: Yes Smoking Status: Current every day smoker Does the pt drink ETOH?: No Does the pt have substance abuse?: No - Immunizations Immunizations are current?: Yes - POLST Patient has POLST: No PD ED PE NORMAL - Vitals Vital signs reviewed: Yes - General General: Alert and oriented X 3, No acute distress - Extremities Extremities: Other (Multiple puncture wounds on the right hand, and 1 puncture wound on the left ring finger. Normal neurovascular function in all the digits.) - Neuro Neuro: Alert and oriented X 3, Normal speech Results - Vitals Vitals: Vital Signs - 24 hr 04/26/22 19:10 Temperature 36.6 C Heart Rate 84 Respiratory 16 Rate Blood Pressure 113/100 H O2 Saturation 100 Oxygen O2 Source Room air - Rads (name of study) Three-view x-rays of both hands are negative Radiology: EMP read contemporaneously Procedures - Laceration (location) Right index finger Length in cm: 2 Wound type: Linear (2 x 1 cm lacerations) Neurovascular status: Sensory intact, Motor intact Tendon involvement: Tendon intact Anesthesia: Lidocaine 1% Wound preparation: Chlorhexadine, Hibiclens, Irrigated copiously NS Skin layer closure: Nylon, Interrupted, Size #-0 - enter number (4-0), Sutures - enter # (2 (1 in each laceration)) Other: Patient tolerated well, No complications, Neurovascular intact, Tetanus booster given Right middle finger Length in cm: 1 Wound type: Linear Neurovascular status: Sensory intact, Motor intact, Vascular intact Tendon involvement: Tendon intact Anesthesia: Lidocaine 1% Wound preparation: Chlorhexadine, Hibiclens, Irrigated copiously NS Skin layer closure: Nylon, Interrupted, Size #-0 - enter number (4-0), Sutures - enter # (1) Other: Patient tolerated well, No complications, Neurovascular intact, Tetanus UTD Departure - Departure Disposition: 01 Home, Self Care Clinical Impression: Dog bite of left hand Dog bite of right hand Qualifiers: Encounter type: initial encounter Qualified Code(s): S61.451A - Open bite of right hand, initial encounter Condition: Good Record reviewed to determine appropriate education?: Yes Instructions: ED Bite Dog, ED Laceration Hand Prescriptions: Amox/Clav 875/125 [Augmentin] 1 each PO Q12H #20 tablet HYDROcod/ACETAM 5/325 [Cidra 5/325] 1 - 2 tab PO Q6H PRN #15 tablet PRN Reason: Pain Comments: Come back for any signs of infection which would include: Redness, swelling, drainage, increased pain, or fevers. You can wash it soap and water. Keep it covered and moist with bacitracin ointment which is available over the counter; avoid neosporin. Follow-up with your physician in 14 days for suture removal I am prescribing a short course of narcotic pain medication for you. These are potentially dangerous and addictive medications that should be used carefully. These medications may constipate you. Take an sxcn-ano-xetkcmk stool softener (docusate) twice daily with plenty of water while taking these medications. If you go 24 hours without a bowel movement, take [id number] miralax, per package instructions. Do not drink or drive while taking these medications. If you received narcotic or sedating medications while in the emergency d epartment, do not drive for 24 hours. Store this medication in a safe, secure place and out of reach of children. It is a violation of federal law to give or sell this medication to another person or to use in a manner other than prescribed. The ED will not refill narcotic prescriptions, including prescriptions lost or stolen. To dispose of unwanted medications: 1. [facility] at [address] [place] [address] in [place] has a medication drop box. They accept prescription medications (in pill form) Monday through Monday 9:00 a.m. to 5:00 p.m. 2. The [facility] accepts prescription medications (in pill form only) for disposal year round. Call for more information. 3. Contact the [facility] for the next [facility] sponsored prescription drug collection event. , [phone], or [phone]; Note that many narcotic pain relievers also contain Tylenol/acetaminophen. Please ensure that your total dose of acetaminophen from all sources does not exceed 3 g (3000 mg) per day.
[2022-04-26] MEDS ORDERED: HYDROcod/ACET 5/325 Prepack 4 PO STA (20:12)
[2022-04-26] MEDS ORDERED: HYDROcod/ACETAM 5/325 MG TABLET PO STA (20:12)
--- NOTE | 2022-04-26 21:36 | XRAY Report ---
PROCEDURE: Hand 3 View BILAT INDICATIONS: B hand dog bites TECHNIQUE: 3 views of each hand acquired. COMPARISON: None. FINDINGS: Bones: No fractures or dislocations. No suspicious bony lesions. Soft tissues: No radiopaque foreign bodies. No suspicious soft tissue calcifications. IMPRESSION: 1. No fracture or radiopaque foreign bodies. Reviewed by: Daniele Mullins MD on 04/26/2022 9:35 PM [facility] Approved by: Daniele Mullins MD on 04/26/2022 9:35 PM [facility] Station ID: [id number]
[2022-04-26] MEDS ORDERED: KETOROLAC 60 MG/2 ML VIAL IM STA (21:42)
[2022-04-26 21:53] VITALS: BP 115/89
== END 2022-04-26 21:54 | disposition home or self-care (01) ==
LOC: EDUNIT# → ED 18:59
DX: S61.250A Open bite of right index finger without damage to nail, initial encounter (principal); S61.252A Open bite of right middle finger without damage to nail, initial encounter; S61.255A Open bite of left ring finger without damage to nail, initial encounter; W54.0XXA Bitten by dog, initial encounter; Y93.89 Activity, other specified; Y92.009 Unspecified place in unspecified non-institutional (private) residence as the place of occurrence of the external cause
CPT/HCPCS: 12002; 73130; 96372; 99283; A9270; J1170

== ENCOUNTER 2022-05-01 15:45 | Emergency (ER) | payer OTHER ==
--- NOTE | 2022-05-01 17:23 | ED Physician Documentation ---
PD HPI UPPER EXT INJURY - Stated complaint Stated Complaint: RT HAND INFECTION - Chief complaint Chief Complaint: Laceration - History obtained from History obtained from: Patient - History of Present Illness Location: Right, Hand, Finger Type of injury: Other (had dog bit to hand 5 days ago with sutures in a few of the cuts and Rx Augmentin. She was at end of Rx for Doxycycline for another infection and finished that 3 days ago. Has had 2 days of redness and mild drainage, increased pain in couple of the sutured wounds.) Timing - onset: How many days ago (5) Timing - duration: Days (2 days now of the infectious symptoms at the wounds.) Worsened by: Moving, Palpating Associated symptoms: Other (denies pain into forearm.). 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 : Chronic bladder infection HEENT: None Psych: Depression, Anxiety, Panic attacks, ADD/ADHD, Eating disorder Musculoskeletal: Scoliosis Derm: Psoriasis - Past Surgical History Past Surgical History: Yes General: Appendectomy - Present Medications Home Medications: Ambulatory Orders Medication Instructions Recorded Confirmed Dextroamphetamine/Amphetamine 20 mg PO QPM 06/15/20 09/05/20 [Adderall 15 mg Tablet] Dextroamphetamine/Amphetamine 30 mg PO DAILY 06/15/20 09/05/20 [Adderall Xr 25 mg Capsule] ARIPiprazole [Abilify] 15 mg PO DAILY PM 06/05/21 06/05/21 Buspirone HCl 20 mg ORAL BID 06/05/21 06/05/21 Etonogestrel [Nexplanon] 68 mg SQ ONCE 06/05/21 06/05/21 lamoTRIgine [LaMICtal] 25 mg PO DAILY 06/05/21 06/05/21 Amox/Clav 875/125 [Augmentin] 1 each PO Q12H #20 tablet 04/26/22 Amoxicillin 875 mg PO BID 11/22/22 11/22/22 Doxycycline [Vibramycin] 100 mg PO BID 04/26/22 04/26/22 HYDROcod/ACETAM 5/325 [Freeman 5/325] 1 - 2 tab PO Q6H PRN #15 tablet 04/26/22 Fluconazole [Diflucan] 150 mg PO Q3D #2 tablet 05/01/22 HYDROcod/ACETAM 5/325 [Freeman 5/325] 1 ea PO Q6H PRN #12 tablet 05/01/22 Mupirocin 2% Oint [Bactroban 2% 1 applic TOP TID #15 gm 05/01/22 Oint] clindamycin HCL [Clindamycin HCl] 300 mg PO TID 5 Days #15 cap 05/01/22 - Allergies Allergies/Adverse Reactions: Allergies Allergy/AdvReac Type Severity Reaction Status Date / Time bupropion [From Wellbutrin] Allergy Unknown Verified 05/01/22 16:12 cefprozil [From Cefzil] AdvReac Hives Verified 05/01/22 16:12 - Social History Does the pt smoke?: Yes Smoking Status: Current every day smoker Does the pt drink ETOH?: No Does the pt have substance abuse?: No - Immunizations Immunizations are current?: Yes - POLST Patient has POLST: No PD ED PE NORMAL - Vitals Vital signs reviewed: Yes - General General: Alert and oriented X 3, No acute distress, Well developed/nourished - Derm Derm: Normal color, Warm and dry - Extremities Extremities: Other (right hand with multiple superficial scrapes and punctues. Several small lacs with single sutures in them. Index and middle finger wounds with some redness and tenderness. No purulence. No red streaking in hand/and no forearm tenderness. ) - Neuro Neuro: Alert and oriented X 3, No motor deficit, No sensory deficit Results - Vitals Vitals: Vital Signs - 24 hr 05/01/22 18:04 Heart Rate 89 Respiratory 16 Rate Blood Pressure 127/84 H O2 Saturation 100 Oxygen O2 Source Room air PD MEDICAL DECISION MAKING - ED course Complexity details: reviewed old records, considered differential (getting wound infection in dogbites, on augmentin. Had been on Doxy for other problem and finished 3 days ago, now 2 days of wound infection. Presume staph in wounds but would choose other than doxy. Can add Clindamycin to the augmentin. ), d/w patient Departure - Departure Disposition: 01 Home, Self Care Clinical Impression: Wound infection Condition: Stable Record reviewed to determine appropriate education?: Yes Follow-Up: CHRISTIN WADE ARNP [Primary Care Provider] - Prescriptions: Mupirocin 2% Oint [Bactroban 2% Oint] 1 applic TOP TID #15 gm clindamycin HCL [Clindamycin HCl] 300 mg PO TID 5 Days #15 cap Fluconazole [Diflucan] 150 mg PO Q3D #2 tablet HYDROcod/ACETAM 5/325 [Freeman 5/325] 1 ea PO Q6H PRN #12 tablet PRN Reason: Pain Comments: For now I would have you continue with the Augmentin previously prescribed. Add clindamycin 3 times daily for the next 5 days as it does appear to be an infection developing despite that medication. Continue cleaning with soap and water and applying ointment and dressing. I would change from bacitracin to mupirocin antibiotic ointment instead however. Add some probiotic oral supplements to help mitigate the diarrhea associated with the antibiotics. Diflucan to help with yeast infection as well. Recheck if persistent signs of infection or worsening despite the above medications. Tylenol or ibuprofen/ Naproxen every 4-6 hours if needed for pains. Add hydrocodone every 4-6 hours if needed for worse pain. I transmitted your prescriptions to [facility] in [place]. I am prescribing a short course of narcotic pain medication for you. These are potentially dangerous and addictive medications that should be used carefully. These medications may constipate you. Take an lnqq-lvm-lxfxztb stool softener such as docusate twice daily with plenty of water while taking these medications. If you go 24 hours without a bowel movement, take [id number] MiraLAX, per package instructions. Do not drink or drive while taking these medications. If you received narcotic or sedating medications while in the emergency department do not drive for 24 hours. Store this medication in a safe, secure place and out of reach of children. It is a violation of federal law to give or sell this medication to another person or to use in a manner other than prescribed. The ED will not refill narcotic prescriptions, including prescriptions lost or stolen. You can dispose of unwanted medications at the [facility]'s office or at several pharmacies such as [facility]. Discharge Date/Time: 05/01/22 18:04
[2022-05-01] MEDS: CLINDAMYCIN 150 MG CAPSULE PO STA (17:54)
[2022-05-01] MEDS: FLUCONAZOLE 100 MG TABLET PO STA (17:54)
[2022-05-01] MEDS: HYDROcod/ACETAM 5/325 MG TABLET PO STA (17:54)
[2022-05-01] MEDS: MUPIROCIN 2% OINT 1 GM TOP STA (17:55)
[2022-05-01 18:06] VITALS: BP 127/84
== END 2022-05-01 18:04 | disposition home or self-care (01) ==
LOC: ED 15:45
DX: S61.451A Open bite of right hand, initial encounter (principal); L08.9 Local infection of the skin and subcutaneous tissue, unspecified; W54.0XXA Bitten by dog, initial encounter; F17.200 Nicotine dependence, unspecified, uncomplicated
CPT/HCPCS: 99283; A9270

== ENCOUNTER 2022-06-02 21:40 | Emergency (ER) | payer OTHER ==
[2022-06-02 21:52] VITALS: BP 128/76
--- OUTSIDE RECORDS SUMMARY | 2022-06-02 22:07 | EXTERNAL MEDICAL SUMMARY RPT | Continuity of Care Document ---
:1995 Author Organization [facility] Address [address] [place] [address] Phone Care Team Providers Name Role Phone Unavailable Unavailable Unavailable Janine Katz, Alvarez Unavailable Unavailable Samantha Moncada, Giovanni Unavailable Unavailable Earl Moncada, Janeth Unavailable Unavailable Christina Preciado, Nellie Unavailable Unavailable Gloria, Provider Unavailable Unavailable Allergies and Intolerances date description facility type (no date) [facility] (unknown) Services [place] (no date) WELLBUTRIN [facility] ([facility] [place] Encounters No information. Functional Status No information. Immunizations No information. Medications date description facility 2022-04-04 00:00 buspirone [facility] 2022-04-05 00:00 buspirone [facility] 2022-04-06 00:00 buspirone [facility] 2022-04-13 00:00 buspirone [facility] 2022-04-14 00:00 buspirone [facility] 2022-04-15 00:00 buspirone [facility] 2022-05-11 00:00 buspirone [facility] 2022-05-13 00:00 buspirone [facility] 2022-04-04 00:00 dextroamphetamine-amphetamine [facility] 2022-04-05 00:00 dextroamphetamine-amphetamine [facility] 2022-04-06 00:00 dextroamphetamine-amphetamine [facility] 2022-04-13 00:00 dextroamphetamine-amphetamine [facility] [place] 2022-04-14 00:00 dextroamphetamine-amphetamine [facility] [place] 2022-04-15 00:00 dextroamphetamine-amphetamine [facility] [place] 2022-05-11 00:00 dextroamphetamine-amphetamine [facility] [place] 2022-05-13 00:00 dextroamphetamine-amphetamine [facility] [place] 2022-04-04 00:00 dextroamphetamine-amphetamine [facility] [place] 2022-04-05 00:00 dextroamphetamine-amphetamine [facility] [place] 2022-04-06 00:00 dextroamphetamine-amphetamine [facility] [place] 2022-04-13 00:00 dextroamphetamine-amphetamine [facility] [place] 2022-04-14 00:00 dextroamphetamine-amphetamine [facility] [place] 2022-04-15 00:00 dextroamphetamine-amphetamine [facility] [place] 2022-05-11 00:00 dextroamphetamine-amphetamine [facility] [place] 2022-05-13 00:00 dextroamphetamine-amphetamine [facility] [place] 2022-04-04 00:00 prazosin [facility] [place] 2022-04-05 00:00 prazosin [facility] [place] 2022-04-06 00:00 prazosin [facility] [place] 2022-04-13 00:00 prazosin [facility] [place] 2022-04-14 00:00 prazosin [facility] [place] 2022-04-15 00:00 prazosin [facility] [place] 2022-05-11 00:00 prazosin [facility] 2022-05-13 00:00 prazosin [facility] [place] 2022-04-04 00:00 dextroamphetamine-amphetamine [facility] 2022-04-05 00:00 dextroamphetamine-amphetamine [facility] 2022-04-06 00:00 dextroamphetamine-amphetamine [facility] 2022-04-13 00:00 dextroamphetamine-amphetamine [facility] 2022-04-14 00:00 dextroamphetamine-amphetamine [facility] 2022-04-15 00:00 dextroamphetamine-amphetamine [facility] 2022-05-11 00:00 dextroamphetamine-amphetamine [facility] 2022-05-13 00:00 dextroamphetamine-amphetamine [facility] [place] 2022-04-04 00:00 dextroamphetamine-amphetamine [facility] 2022-04-05 00:00 dextroamphetamine-amphetamine [facility] 2022-04-06 00:00 dextroamphetamine-amphetamine [facility] 2022-04-13 00:00 dextroamphetamine-amphetamine [facility] 2022-04-14 00:00 dextroamphetamine-amphetamine [facility] 2022-04-15 00:00 dextroamphetamine-amphetamine [facility] 2022-05-11 00:00 dextroamphetamine-amphetamine [facility] 2022-05-13 00:00 dextroamphetamine-amphetamine [facility] [place] 2022-04-13 00:00 nitrofurantoin monohyd/m-cryst [facility] [place] 2022-04-13 00:00 nitrofurantoin monohyd/m-cryst [facility] [place] 2022-04-13 00:00 nitrofurantoin monohyd/m-cryst [facility] [place] 2022-04-13 00:00 nitrofurantoin monohyd/m-cryst [facility] [place] 2022-04-13 00:00 nitrofurantoin monohyd/m-cryst [facility] [place] 2022-04-13 00:00 nitrofurantoin monohyd/m-cryst [facility] [place] 2022-04-13 00:00 nitrofurantoin monohyd/m-cryst [facility] [place] 2022-04-13 00:00 nitrofurantoin monohyd/m-cryst [facility] [place] 2022-04-04 00:00 sulfamethoxazole-trimethoprim [facility] [place] 2022-04-04 00:00 sulfamethoxazole-trimethoprim [facility] [place] 2022-04-04 00:00 sulfamethoxazole-trimethoprim [facility] [place] 2022-04-04 00:00 sulfamethoxazole-trimethoprim [facility] [place] 2022-04-04 00:00 sulfamethoxazole-trimethoprim [facility] [place] 2022-04-04 00:00 prazosin [facility] [place] 2022-04-05 00:00 prazosin [facility] [place] 2022-04-06 00:00 prazosin [facility] [place] 2022-04-13 00:00 prazosin [facility] [place] 2022-04-14 00:00 prazosin [facility] [place] 2022-04-15 00:00 prazosin [facility] [place] 2022-05-11 00:00 prazosin [facility] [place] 2022-05-13 00:00 prazosin [facility] [place] 2022-04-04 00:00 prazosin [facility] [place] 2022-04-05 00:00 prazosin [facility] [place] 2022-04-06 00:00 prazosin [facility] [place] 2022-04-13 00:00 prazosin [facility] [place] 2022-04-14 00:00 prazosin [facility] [place] 2022-04-15 00:00 prazosin [facility] [place] 2022-05-11 00:00 prazosin [facility] [place] 2022-05-13 00:00 prazosin [facility] [place] 2022-04-04 00:00 sulfamethoxazole-trimethoprim [facility] [place] 2022-04-04 00:00 sulfamethoxazole-trimethoprim [facility] [place] 2022-04-04 00:00 sulfamethoxazole-trimethoprim [facility] [place] 2022-04-04 00:00 sulfamethoxazole-trimethoprim [facility] [place] 2022-04-04 00:00 sulfamethoxazole-trimethoprim [facility] [place] 2022-04-04 00:00 lamotrigine [facility] [place] 2022-04-05 00:00 lamotrigine [facility] [place] 2022-04-06 00:00 lamotrigine [facility] [place] 2022-04-13 00:00 lamotrigine [facility] [place] 2022-04-14 00:00 lamotrigine [facility] [place] 2022-04-15 00:00 lamotrigine [facility] [place] 2022-05-11 00:00 lamotrigine [facility] [place] 2022-05-13 00:00 lamotrigine [facility] [place] 2022-04-04 00:00 dextroamphetamine-amphetamine [facility] [place] 2022-04-05 00:00 dextroamphetamine-amphetamine [facility] [place] 2022-04-06 00:00 dextroamphetamine-amphetamine [facility] [place] 2022-04-13 00:00 dextroamphetamine-amphetamine [facility] [place] 2022-04-14 00:00 dextroamphetamine-amphetamine [facility] [place] 2022-04-15 00:00 dextroamphetamine-amphetamine [facility] [place] 2022-05-11 00:00 dextroamphetamine-amphetamine [facility] [place] 2022-05-13 00:00 dextroamphetamine-amphetamine [facility] [place] 2022-04-04 00:00 buspirone [facility] [place] 2022-04-05 00:00 buspirone [facility] [place] 2022-04-06 00:00 buspirone [facility] [place] 2022-04-13 00:00 buspirone [facility] [place] 2022-04-14 00:00 buspirone [facility] [place] 2022-04-15 00:00 buspirone [facility] [place] 2022-05-11 00:00 buspirone [facility] [place] 2022-05-13 00:00 buspirone [facility] [place] 2022-04-04 00:00 gabapentin [facility] [place] 2022-04-05 00:00 gabapentin [facility] [place] 2022-04-06 00:00 gabapentin [facility] [place] 2022-04-13 00:00 gabapentin [facility] [place] 2022-04-14 00:00 gabapentin [facility] [place] 2022-04-15 00:00 gabapentin [facility] [place] 2022-05-11 00:00 gabapentin [facility] [place] 2022-05-13 00:00 gabapentin [facility] [place] 2022-04-04 00:00 gabapentin [facility] [place] 2022-04-05 00:00 gabapentin [facility] [place] 2022-04-06 00:00 gabapentin [facility] [place] 2022-04-13 00:00 gabapentin [facility] [place] 2022-04-14 00:00 gabapentin [facility] [place] 2022-04-15 00:00 gabapentin [facility] [place] 2022-05-11 00:00 gabapentin [facility] [place] 2022-05-13 00:00 gabapentin [facility] [place] 2022-04-04 00:00 sulfamethoxazole-trimethoprim [facility] [place] 2022-04-04 00:00 sulfamethoxazole-trimethoprim [facility] [place] 2022-04-04 00:00 sulfamethoxazole-trimethoprim [facility] 2022-04-04 00:00 sulfamethoxazole-trimethoprim [facility] [place] 2022-04-04 00:00 sulfamethoxazole-trimethoprim [facility] [place] 2022-04-04 00:00 aripiprazole [facility] [place] 2022-04-05 00:00 aripiprazole [facility] [place] 2022-04-06 00:00 aripiprazole [facility] [place] 2022-04-13 00:00 aripiprazole [facility] [place] 2022-04-14 00:00 aripiprazole [facility] [place] 2022-04-15 00:00 aripiprazole [facility] [place] 2022-05-11 00:00 aripiprazole [facility] [place] 2022-05-13 00:00 aripiprazole [facility] [place] 2022-04-04 00:00 aripiprazole [facility] [place] 2022-04-05 00:00 aripiprazole [facility] [place] 2022-04-06 00:00 aripiprazole [facility] [place] 2022-04-13 00:00 aripiprazole [facility] [place] 2022-04-14 00:00 aripiprazole [facility] [place] 2022-04-15 00:00 aripiprazole [facility] [place] 2022-05-11 00:00 aripiprazole [facility] [place] 2022-05-13 00:00 aripiprazole [facility] [place] 2022-04-04 00:00 aripiprazole [facility] [place] 2022-04-05 00:00 aripiprazole [facility] [place] 2022-04-06 00:00 aripiprazole [facility] [place] 2022-04-13 00:00 aripiprazole [facility] [place] 2022-04-14 00:00 aripiprazole [facility] [place] 2022-04-15 00:00 aripiprazole [facility] [place] 2022-05-11 00:00 aripiprazole [facility] [place] 2022-05-13 00:00 aripiprazole [facility] [place] 2022-04-04 00:00 prazosin [facility] [place] 2022-04-05 00:00 prazosin [facility] [place] 2022-04-06 00:00 prazosin [facility] [place] 2022-04-13 00:00 prazosin [facility] [place] 2022-04-14 00:00 prazosin [facility] [place] 2022-04-15 00:00 prazosin [facility] [place] 2022-05-11 00:00 prazosin [facility] [place] 2022-05-13 00:00 prazosin [facility] [place] 2022-04-04 00:00 lamotrigine [facility] [place] 2022-04-05 00:00 lamotrigine [facility] [place] 2022-04-06 00:00 lamotrigine [facility] [place] 2022-04-13 00:00 lamotrigine [facility] 2022-04-14 00:00 lamotrigine [facility] [place] 2022-04-15 00:00 lamotrigine [facility] [place] 2022-05-11 00:00 lamotrigine [facility] [place] 2022-05-13 00:00 lamotrigine [facility] [place] 2022-04-04 00:00 aripiprazole [facility] [place] 2022-04-05 00:00 aripiprazole [facility] [place] 2022-04-06 00:00 aripiprazole [facility] [place] 2022-04-13 00:00 aripiprazole [facility] [place] 2022-04-14 00:00 aripiprazole [facility] [place] 2022-04-15 00:00 aripiprazole [facility] [place] 2022-05-11 00:00 aripiprazole [facility] [place] 2022-05-13 00:00 aripiprazole [facility] [place] 2022-04-04 00:00 gabapentin [facility] [place] 2022-04-05 00:00 gabapentin [facility] [place] 2022-04-06 00:00 gabapentin [facility] [place] 2022-04-13 00:00 gabapentin [facility] [place] 2022-04-14 00:00 gabapentin [facility] [place] 2022-04-15 00:00 gabapentin [facility] [place] 2022-05-11 00:00 gabapentin [facility] [place] 2022-05-13 00:00 gabapentin [facility] [place] 2022-04-04 00:00 gabapentin [facility] [place] 2022-04-05 00:00 gabapentin [facility] 2022-04-06 00:00 gabapentin [facility] 2022-04-13 00:00 gabapentin [facility] 2022-04-14 00:00 gabapentin [facility] 2022-04-15 00:00 gabapentin [facility] 2022-05-11 00:00 gabapentin [facility] 2022-05-13 00:00 gabapentin [facility] 2022-04-13 00:00 nitrofurantoin monohyd/m-cryst [facility] 2022-04-13 00:00 nitrofurantoin monohyd/m-cryst [facility] 2022-04-13 00:00 nitrofurantoin monohyd/m-cryst [facility] 2022-04-13 00:00 nitrofurantoin monohyd/m-cryst [facility] [place] 2022-04-04 00:00 sulfamethoxazole-trimethoprim [facility] [place] 2022-04-04 00:00 sulfamethoxazole-trimethoprim [facility] 2022-04-04 00:00 sulfamethoxazole-trimethoprim [facility] 2022-04-04 00:00 sulfamethoxazole-trimethoprim [facility] [place] 2022-04-04 00:00 sulfamethoxazole-trimethoprim [facility] [place] 2022-04-13 00:00 nitrofurantoin monohyd/m-cryst [facility] [place] 2022-04-13 00:00 nitrofurantoin monohyd/m-cryst [facility] 2022-04-13 00:00 nitrofurantoin monohyd/m-cryst [facility] 2022-04-13 00:00 nitrofurantoin monohyd/m-cryst [facility] 2022-04-04 00:00 buspirone [facility] [place] 2022-04-05 00:00 buspirone [facility] [place] 2022-04-06 00:00 buspirone [facility] [place] 2022-04-13 00:00 buspirone [facility] [place] 2022-04-14 00:00 buspirone [facility] [place] 2022-04-15 00:00 buspirone [facility] [place] 2022-05-11 00:00 buspirone [facility] 2022-05-13 00:00 buspirone [facility] [place] 2022-04-04 00:00 dextroamphetamine-amphetamine [facility] 2022-04-05 00:00 dextroamphetamine-amphetamine [facility] 2022-04-06 00:00 dextroamphetamine-amphetamine [facility] [place] 2022-04-13 00:00 dextroamphetamine-amphetamine [facility] [place] 2022-04-14 00:00 dextroamphetamine-amphetamine [facility] [place] 2022-04-15 00:00 dextroamphetamine-amphetamine [facility] [place] 2022-05-11 00:00 dextroamphetamine-amphetamine [facility] [place] 2022-05-13 00:00 dextroamphetamine-amphetamine [facility] [place] 2022-04-04 00:00 dextroamphetamine-amphetamine [facility] 2022-04-05 00:00 dextroamphetamine-amphetamine [facility] [place] 2022-04-06 00:00 dextroamphetamine-amphetamine [facility] [place] 2022-04-13 00:00 dextroamphetamine-amphetamine [facility] [place] 2022-04-14 00:00 dextroamphetamine-amphetamine [facility] [place] 2022-04-15 00:00 dextroamphetamine-amphetamine [facility] [place] 2022-05-11 00:00 dextroamphetamine-amphetamine [facility] [place] 2022-05-13 00:00 dextroamphetamine-amphetamine [facility] [place] 2022-04-04 00:00 aripiprazole [facility] [place] 2022-04-05 00:00 [facility]iprazole [facility] [place] 2022-04-06 00:00 aripiprazole [facility] [place] 2022-04-13 00:00 aripiprazole [facility] [place] 2022-04-14 00:00 aripiprazole [facility] [place] 2022-04-15 00:00 aripiprazole [facility] [place] 2022-05-11 00:00 aripiprazole [facility] [place] 2022-05-13 00:00 aripiprazole [facility] [place] 2022-04-04 00:00 aripiprazole [facility] [place] 2022-04-05 00:00 aripiprazole [facility] [place] 2022-04-06 00:00 aripiprazole [facility] [place] 2022-04-13 00:00 aripiprazole [facility] [place] 2022-04-14 00:00 aripiprazole [facility] [place] 2022-04-15 00:00 aripiprazole [facility] [place] 2022-05-11 00:00 aripiprazole [facility] [place] 2022-05-13 00:00 aripiprazole [facility] [place] 2022-04-04 00:00 lamotrigine [facility] [place] 2022-04-05 00:00 lamotrigine [facility] [place] 2022-04-06 00:00 lamotrigine [facility] [place] 2022-04-13 00:00 lamotrigine [facility] [place] 2022-04-14 00:00 lamotrigine [facility] [place] 2022-04-15 00:00 lamotrigine [facility] [place] 2022-05-11 00:00 lamotrigine [facility] [place] 2022-05-13 00:00 lamotrigine [facility] [place] 2022-04-04 00:00 gabapentin [facility] [place] 2022-04-05 00:00 gabapentin [facility] [place] 2022-04-06 00:00 gabapentin [facility] [place] 2022-04-13 00:00 gabapentin [facility] [place] 2022-04-14 00:00 gabapentin [facility] [place] 2022-04-15 00:00 gabapentin [facility] [place] 2022-05-11 00:00 gabapentin [facility] [place] 2022-05-13 00:00 gabapentin [facility] [place] 2022-04-04 00:00 gabapentin [facility] [place] 2022-04-05 00:00 gabapentin [facility] [place] 2022-04-06 00:00 gabapentin [facility] [place] 2022-04-13 00:00 gabapentin [facility] [place] 2022-04-14 00:00 gabapentin [facility] [place] 2022-04-15 00:00 gabapentin [facility] [place] 2022-05-11 00:00 gabapentin [facility] [place] 2022-05-13 00:00 gabapentin [facility] [place] 2022-04-04 00:00 dextroamphetamine-amphetamine [facility] [place] 2022-04-05 00:00 dextroamphetamine-amphetamine [facility] [place] 2022-04-06 00:00 dextroamphetamine-amphetamine [facility] [place] 2022-04-13 00:00 dextroamphetamine-amphetamine [facility] [place] 2022-04-14 00:00 dextroamphetamine-amphetamine [facility] [place] 2022-04-15 00:00 dextroamphetamine-amphetamine [facility] [place] 2022-05-11 00:00 dextroamphetamine-amphetamine [facility] [place] 2022-05-13 00:00 dextroamphetamine-amphetamine [facility] [place] 2022-04-04 00:00 dextroamphetamine-amphetamine [facility] [place] 2022-04-05 00:00 dextroamphetamine-amphetamine [facility] [place] 2022-04-06 00:00 dextroamphetamine-amphetamine [facility] [place] 2022-04-13 00:00 dextroamphetamine-amphetamine [facility] [place] 2022-04-14 00:00 dextroamphetamine-amphetamine [facility] [place] 2022-04-15 00:00 dextroamphetamine-amphetamine [facility] [place] 2022-05-11 00:00 dextroamphetamine-amphetamine [facility] [place] 2022-05-13 00:00 dextroamphetamine-amphetamine [facility] [place] 2022-04-04 00:00 dextroamphetamine-amphetamine [facility] [place] 2022-04-05 00:00 dextroamphetamine-amphetamine [facility] [place] 2022-04-06 00:00 dextroamphetamine-amphetamine [facility] [place] 2022-04-13 00:00 dextroamphetamine-amphetamine [facility] [place] 2022-04-14 00:00 dextroamphetamine-amphetamine [facility] [place] 2022-04-15 00:00 dextroamphetamine-amphetamine [facility] [place] 2022-05-11 00:00 dextroamphetamine-amphetamine [facility] [place] 2022-05-13 00:00 dextroamphetamine-amphetamine [facility] [place] 2022-04-04 00:00 dextroamphetamine-amphetamine [facility] [place] 2022-04-05 00:00 dextroamphetamine-amphetamine [facility] [place] 2022-04-06 00:00 dextroamphetamine-amphetamine [facility] [place] 2022-04-13 00:00 dextroamphetamine-amphetamine [facility] [place] 2022-04-14 00:00 dextroamphetamine-amphetamine [facility] [place] 2022-04-15 00:00 dextroamphetamine-amphetamine [facility] [place] 2022-05-11 00:00 dextroamphetamine-amphetamine [facility] [place] 2022-05-13 00:00 dextroamphetamine-amphetamine [facility] [place] 2022-04-04 00:00 dextroamphetamine-amphetamine [facility] [place] 2022-04-05 00:00 dextroamphetamine-amphetamine [facility] [place] 2022-04-06 00:00 dextroamphetamine-amphetamine [facility] [place] 2022-04-13 00:00 dextroamphetamine-amphetamine [facility] [place] 2022-04-14 00:00 dextroamphetamine-amphetamine [facility] [place] 2022-04-15 00:00 dextroamphetamine-amphetamine [facility] [place] 2022-05-11 00:00 dextroamphetamine-amphetamine [facility] [place] 2022-05-13 00:00 dextroamphetamine-amphetamine [facility] [place] 2022-04-04 00:00 gabapentin [facility] [place] 2022-04-05 00:00 gabapentin [facility] [place] 2022-04-06 00:00 gabapentin [facility] [place] 2022-04-13 00:00 gabapentin [facility] [place] 2022-04-14 00:00 gabapentin [facility] [place] 2022-04-15 00:00 gabapentin [facility] [place] 2022-05-11 00:00 gabapentin [facility] [place] 2022-05-13 00:00 gabapentin [facility] [place] 2022-04-04 00:00 gabapentin [facility] [place] 2022-04-05 00:00 gabapentin [facility] [place] 2022-04-06 00:00 gabapentin [facility] [place] 2022-04-13 00:00 gabapentin [facility] [place] 2022-04-14 00:00 gabapentin [facility] [place] 2022-04-15 00:00 gabapentin [facility] [place] 2022-05-11 00:00 gabapentin [facility] [place] 2022-05-13 00:00 gabapentin [facility] [place] 2022-04-04 00:00 lamotrigine [facility] [place] 2022-04-05 00:00 lamotrigine [facility] [place] 2022-04-06 00:00 lamotrigine [facility] [place] 2022-04-13 00:00 lamotrigine [facility] [place] 2022-04-14 00:00 lamotrigine [facility] [place] 2022-04-15 00:00 lamotrigine [facility] [place] 2022-05-11 00:00 lamotrigine [facility] [place] 2022-05-13 00:00 lamotrigine [facility] [place] 2022-04-04 00:00 dextroamphetamine-amphetamine [facility] [place] 2022-04-05 00:00 dextroamphetamine-amphetamine [facility] [place] 2022-04-06 00:00 dextroamphetamine-amphetamine [facility] [place] 2022-04-13 00:00 dextroamphetamine-amphetamine [facility] [place] 2022-04-14 00:00 dextroamphetamine-amphetamine [facility] [place] 2022-04-15 00:00 dextroamphetamine-amphetamine [facility] [place] 2022-05-11 00:00 dextroamphetamine-amphetamine [facility] [place] 2022-05-13 00:00 dextroamphetamine-amphetamine [facility] [place] 2022-04-04 00:00 dextroamphetamine-amphetamine [facility] [place] 2022-04-05 00:00 dextroamphetamine-amphetamine [facility] [place] 2022-04-06 00:00 dextroamphetamine-amphetamine [facility] [place] 2022-04-13 00:00 dextroamphetamine-amphetamine [facility] [place] 2022-04-14 00:00 dextroamphetamine-amphetamine [facility] [place] 2022-04-15 00:00 dextroamphetamine-amphetamine [facility] [place] 2022-05-11 00:00 dextroamphetamine-amphetamine [facility] [place] 2022-05-13 00:00 dextroamphetamine-amphetamine [facility] [place] 2022-04-04 00:00 aripiprazole [facility] [place] 2022-04-05 00:00 aripiprazole [facility] [place] 2022-04-06 00:00 aripiprazole [facility] [place] 2022-04-13 00:00 aripiprazole [facility] [place] 2022-04-14 00:00 aripiprazole [facility] [place] 2022-04-15 00:00 aripiprazole [facility] [place] 2022-05-11 00:00 aripiprazole [facility] [place] 2022-05-13 00:00 aripiprazole [facility] [place] 2022-04-04 00:00 aripiprazole [facility] [place] 2022-04-05 00:00 aripiprazole [facility] [place] 2022-04-06 00:00 aripiprazole [facility] [place] 2022-04-13 00:00 aripiprazole [facility] [place] 2022-04-14 00:00 aripiprazole [facility] [place] 2022-04-15 00:00 aripiprazole [facility] [place] 2022-05-11 00:00 aripiprazole [facility] [place] 2022-05-13 00:00 aripiprazole [facility] [place] 2022-04-04 00:00 dextroamphetamine-amphetamine [facility] [place] 2022-04-05 00:00 dextroamphetamine-amphetamine [facility] [place] 2022-04-06 00:00 dextroamphetamine-amphetamine [facility] [place] 2022-04-13 00:00 dextroamphetamine-amphetamine [facility] [place] 2022-04-14 00:00 dextroamphetamine-amphetamine [facility] [place] 2022-04-15 00:00 dextroamphetamine-amphetamine [facility] [place] 2022-05-11 00:00 dextroamphetamine-amphetamine [facility] [place] 2022-05-13 00:00 dextroamphetamine-amphetamine [facility] [place] 2022-04-04 00:00 dextroamphetamine-amphetamine [facility] [place] 2022-04-05 00:00 dextroamphetamine-amphetamine [facility] [place] 2022-04-06 00:00 dextroamphetamine-amphetamine [facility] [place] 2022-04-13 00:00 dextroamphetamine-amphetamine [facility] [place] 2022-04-14 00:00 dextroamphetamine-amphetamine [facility] [place] 2022-04-15 00:00 dextroamphetamine-amphetamine [facility] [place] 2022-05-11 00:00 dextroamphetamine-amphetamine [facility] [place] 2022-05-13 00:00 dextroamphetamine-amphetamine [facility] [place] 2022-04-04 00:00 buspirone [facility] [place] 2022-04-05 00:00 buspirone [facility] [place] 2022-04-06 00:00 buspirone [facility] [place] 2022-04-13 00:00 buspirone [facility] [place] 2022-04-14 00:00 buspirone [facility] [place] 2022-04-15 00:00 buspirone [facility] [place] 2022-05-11 00:00 buspirone [facility] [place] 2022-05-13 00:00 buspirone [facility] [place] 2022-04-04 00:00 etonogestrel [facility] [place] 2022-04-05 00:00 etonogestrel [facility] [place] 2022-04-06 00:00 etonogestrel [facility] [place] 2022-04-13 00:00 etonogestrel [facility] [place] 2022-04-14 00:00 etonogestrel [facility] [place] 2022-04-15 00:00 etonogestrel [facility] [place] 2022-05-11 00:00 etonogestrel [facility] [place] 2022-05-13 00:00 etonogestrel [facility] [place] Problems date description facility 2022-04-13 00:00 Recurrent [facility]is [facility] 2022-04-13 00:00 Recurrent bacterial cystitis Walk[facility] [place] 2022-04-13 00:00 Recurrent bacterial cystitis Walk[facility]In [facility] [place] 2022-04-13 00:00 Recurrent bacterial cystitis Walk-In [facility] [place] 2022-04-13 00:00 Cystitis, unspecified [facility] [place] 2022-04-13 00:00 Cystitis, unspecified [facility] [place] 2022-04-13 00:00 Cystitis, unspecified [facility] [place] 2022-04-13 00:00 Cystitis, unspecified [facility] [place] 2022-04-13 00:00 Cystitis, unspecified without [facility] hematuria [facility] [place] 2022-04-13 00:00 Cystitis, unspecified without [facility] [place] 2022-04-13 00:00 Cystitis, unspecified without [facility] [place] 2022-04-13 00:00 Cystitis, unspecified without [facility] [place] 2022-05-11 00:00 Hand joint stiff [facility] [place] 2022-05-11 00:00 Hand joint stiff [facility] [place] 2022-05-11 00:00 Stiffness of joint, not elsewhere Walk -[facility] Care & classified, involving hand [facility] Ser [facility] [place] 2022-05-11 00:00 Stiffness of joint, not elsewhere Walk -In [facility] Primary Care & classified, involving hand [facility]illary Ser [facility] 2022-05-11 00:00 Laceration of hand without [facility] foreign body [facility] [place] 2022-05-11 00:00 Laceration of hand without [facility] foreign body [facility] [place] 2022-05-11 00:00 Stiffness of unspecified hand, Walk-In [facility] Primary Care & not elsewhere classified [facility] Serv[facility] [place] 2022-05-11 00:00 Stiffness of unspecified hand, [facility]In [facility] Primary Care & not elsewhere classified [facility] Serv[facility] [place] 2022-05-11 00:00 Laceration without foreign body Walk-I n [facility] Primary Care & of unspecified hand, sequela Ancillary S ervices [place] 2022-05-11 00:00 Laceration without foreign body [facility] Primary Care & of unspecified hand, sequela Ancillary S ervices [place] Procedures date description facility 2022-04-04 00:00 Visit Code Hold [facility] [place] 2022-04-04 00:00 Visit Code Hold [facility] [place] 2022-04-04 00:00 Visit Code Hold [facility] [place] 2022-04-04 00:00 Visit Code Hold [facility] [place] 2022-04-04 00:00 Visit Code Hold [facility] [place] 2022-04-13 00:00 Visit Code Hold [facility] [place] 2022-04-13 00:00 Visit Code Hold [facility] [place] 2022-04-13 00:00 Visit Code Hold [facility] [place] 2022-04-13 00:00 Visit Code Hold [facility] [place] 2022-05-11 00:00 Visit Code Hold [facility] [place] 2022-05-11 00:00 Visit Code Hold [facility] [place] 2022-04-13 00:00 POC URINALYSIS DIP [facility] [place] 2022-04-13 00:00 POC URINALYSIS DIP [facility] [place] 2022-04-13 00:00 POC URINALYSIS DIP [facility] [place] 2022-04-13 00:00 POC URINALYSIS DIP Walk[facility]In [facility] [place] 2022-04-13 00:00 Urine C&S Walk-In [facility] [place] 2022-04-13 00:00 Urine C&S Walk-In [facility] [place] 2022-04-13 00:00 Urine C&S Walk-In [facility] [place] 2022-04-13 00:00 Urine C&S Walk-In [facility] [place] Results/Labs test date author facility value unit interpret ation Result panel 1 (unknown) (no date) (unknown) Walk-In (no value) (units (unk nown) Clinic Primary unknown) [facility] [place] Result panel 2 (unknown) (no date) (unknown) Walk-In (no value) (units ([facility] nown[facility] Clinic Primary unknown) [facility] [place] Result panel 3 (unknown) (no date) (unknown) Walk-In (no value) (units ([facility] nown) Clinic Primary unknown) [facility] [place] Result panel 4 (unknown) (no date) (unknown) Walk-In (no value) (units ([facility] nown) Clinic Primary unknown) [facility] [place] Result panel 5 (unknown) (no date) (unknown) Walk[facility]In (no value) (units ([facility] nown) Clinic Primary unknown) [facility] [place] Result panel 6 (unknown) (no date) (unknown) Walk-In (no value) (units ([facility] nown) Clinic Primary unknown) [facility] [place] Result panel 7 (unknown) (no date) (unknown) Walk-In (no value) (units ([facility] nown) Clinic Primary unknown[facility] [place] Result panel 8 (unknown) (no date) (unknown) Walk-In (no value) (units ([facility] nown) Clinic Primary unknown) [facility] [place] Result panel 9 (unknown) (no date) (unknown) Walk-In (no value) (units ([facility] nown) Clinic Primary unknown[facility] [place] Result panel 10 (unknown) (no date) (unknown) Walk-In (no value) (units ([facility] nown) Clinic Primary unknown) [facility] [place] Result panel 11 (unknown) (no date) (unknown) Walk-In (no value) (units ([facility] nown) Clinic Primary unknown) [facility] [place] Result panel 12 (unknown) (no date) (unknown) Walk-In (no value) (units ([facility] nown) Clinic Primary unknown) [facility] [place] Result panel 13 (unknown) (no date) (unknown) Walk-In (no value) (units ([facility] nown) Clinic Primary unknown) [facility] [place] Result panel 14 (unknown) (no date) (unknown) Walk-In (no value) (units ([facility] nown) Clinic Primary unknown) [facility] [place] Result panel 15 (unknown) (no date) (unknown) Walk-In (no value) (units ([facility] nown) Clinic Primary unknown) [facility] [place] Result panel 16 (unknown) (no date) (unknown) Walk-In (no value) (units ([facility] nown) Clinic Primary unknown[facility] [place] Result panel 17 (unknown) (no date) (unknown) Walk-In (no value) (units ([facility] nown) Clinic Primary unknown) [facility] [place] Result panel 18 (unknown) (no date) (unknown) Walk-In (no value) (units ([facility] nown) Clinic Primary unknown) [facility] [place] Result panel 19 (unknown) (no date) (unknown) [facility] ([facility] value[facility] Result panel 20 (unknown) (no date) (unknown) [facility] (no value[facility] Result panel 21 (unknown) (no date) (unknown) [facility] (no value[facility] Result panel 22 (unknown) (no date) (unknown) [facility] (no value) [facility] Result panel 23 (unknown) (no date) (unknown) [facility] (no value) [facility] Result panel 24 (unknown) (no date) (unknown) [facility] (no value) [facility] Result panel 25 (unknown) (no date) (unknown) [facility] (no value) [facility] Result panel 26 (unknown) (no date) (unknown) [facility] (no value) [facility] Result panel 27 (unknown) (no date) (unknown) [facility] (no value) [facility] Result panel 28 (unknown) (no date) (unknown) [facility] (no value) [facility] Result panel 29 (unknown) (no date) (unknown) [facility] (no value) [facility] Result panel 30 (unknown) (no date) (unknown) [facility] (no value) [facility] Result panel 31 (unknown) (no date) (unknown) [facility] (no value) [facility] Result panel 32 (unknown) (no date) (unknown) [facility] (no value) [facility] Result panel 33 (unknown) (no date) (unknown) [facility] (no value) [facility] Result panel 34 (unknown) (no date) (unknown) [facility] (no value) [facility] Result panel 35 (unknown) (no date) (unknown) [facility] (no value) [facility] Result panel 36 (unknown) (no date) (unknown) [facility] (no value) [facility] Result panel 37 (unknown) (no date) (unknown) [facility] (no value) [facility] Result panel 38 (unknown) (no date) (unknown) [facility] (no value) [facility] Result panel 39 (unknown) (no date) (unknown) [facility] (no value) [facility] Result panel 40 (unknown) (no date) (unknown) [facility] (no value) [facility] Result panel 41 (unknown) (no date) (unknown) [facility] (no value) [facility] Result panel 42 (unknown) (no date) (unknown) [facility] (no value) [facility] Result panel 43 (unknown) (no date) (unknown) [facility] (no value) [facility] Result panel 44 (unknown) (no date) (unknown) [facility] (no value) [facility] Result panel 45 (unknown) (no date) (unknown) [facility] (no value) [facility] Result panel 46 (unknown) (no date) (unknown) [facility] (no value) [facility] Result panel 47 (unknown) (no date) (unknown) [facility] (no value) [facility] Result panel 48 (unknown) (no date) (unknown) [facility] (no value) [facility] Result panel 49 (unknown) (no date) (unknown) [facility] (no value) [facility] Result panel 50 (unknown) (no date) (unknown) [facility] (no value) [facility] Result panel 51 (unknown) (no date) (unknown) [facility] (no value) [facility] Result panel 52 (unknown) (no date) (unknown) [facility] (no value) [facility] Result panel 53 (unknown) (no date) (unknown) [facility] (no value) [facility] Result panel 54 (unknown) (no date) (unknown) [facility] (no value) [facility] Result panel 55 (unknown) (no date) (unknown) [facility] (no value) [facility] Result panel 56 (unknown) (no date) (unknown) [facility] (no value) [facility] Result panel 57 (unknown) (no date) (unknown) [facility] (no value) [facility] Result panel 58 (unknown) (no date) (unknown) [facility] (no value) [facility] Result panel 59 (unknown) (no date) (unknown) [facility] (no value) [facility] Result panel 60 (unknown) (no date) (unknown) [facility] (no value) [facility] Result panel 61 (unknown) (no date) (unknown) [facility] (no value) [facility] Result panel 62 (unknown) (no date) (unknown) [facility] (no value) [facility] Result panel 63 (unknown) (no date) (unknown) [facility] (no value) [facility] Result panel 64 (unknown) (no date) (unknown) [facility] (no value) [facility] Result panel 65 (unknown) (no date) (unknown) [facility] (no value) [facility] Result panel 66 (unknown) (no date) (unknown) [facility] (no value) [facility] Result panel 67 (unknown) (no date) (unknown) [facility] (no value) [facility] Result panel 68 (unknown) (no date) (unknown) [facility] (no value) [facility] Result panel 69 (unknown) (no date) (unknown) [facility] (no value) [facility] Result panel 70 (unknown) (no date) (unknown) [facility] (no value) [facility] Result panel 71 (unknown) (no date) (unknown) [facility] value[facility] [place] Result panel 72 (unknown) (no date) (unknown) [facility] (no value) [facility] Result panel 73 (unknown) (no date) (unknown) [facility] (no value) [facility] Result panel 74 (unknown) (no date) (unknown) [facility] (no value) [facility] Result panel 75 (unknown) (no date) (unknown) [facility] (no value) [facility] Result panel 76 (unknown) (no date) (unknown) [facility] (no value) [facility] Result panel 77 (unknown) (no date) (unknown) [facility] (no value) [facility] Result panel 78 (unknown) (no date) (unknown) [facility] (no value) [facility] Result panel 79 (unknown) (no date) (unknown) [facility] (no value) [facility] Result panel 80 (unknown) (no date) (unknown) [facility] (no value) [facility] Result panel 81 (unknown) (no date) (unknown) [facility] (no value) [facility] Result panel 82 (unknown) (no date) (unknown) [facility] (no value) [facility] Result panel 83 (unknown) (no date) (unknown) [facility] (no value) [facility] Result panel 84 (unknown) (no date) (unknown) [facility] (no value) [facility] Result panel 85 (unknown) (no date) (unknown) [facility] (no value) [facility] Result panel 86 (unknown) (no date) (unknown) [facility] (no value) [facility] Result panel 87 (unknown) (no date) (unknown) [facility] (no value) [facility] Result panel 88 (unknown) (no date) (unknown) [facility] (no value) [facility] Result panel 89 (unknown) (no date) (unknown) [facility] (no value) [facility] Result panel 90 (unknown) (no date) (unknown) [facility] (no value) [facility] Result panel 91 (unknown) (no date) (unknown) [facility] (no value) [facility] Result panel 92 (unknown) (no date) (unknown) [facility] (no value) [facility] Result panel 93 (unknown) (no date) (unknown) [facility] (no value) [facility] Result panel 94 (unknown) (no date) (unknown) [facility] (no value) [facility] Result panel 95 (unknown) (no date) (unknown) [facility] (no value) [facility] Result panel 96 (unknown) (no date) (unknown) [facility] (no value) [facility] Result panel 97 (unknown) (no date) (unknown) [facility] (no value) [facility] Result panel 98 (unknown) (no date) (unknown) [facility] (no value) [facility] Result panel 99 (unknown) (no date) (unknown) [facility] (no value) [facility] Result panel 100 (unknown) (no date) (unknown) [facility] (no value) [facility] Result panel 101 (unknown) (no date) (unknown) [facility] (no value) [facility] Result panel 102 (unknown) (no date) (unknown) [facility] (no value) [facility] Result panel 103 (unknown) (no date) (unknown) [facility] (no value) [facility] Result panel 104 (unknown) (no date) (unknown) [facility] (no value) [facility] Result panel 105 (unknown) (no date) (unknown) [facility] (no value) [facility] Result panel 106 (unknown) (no date) (unknown) [facility] (no value) [facility] Result panel 107 (unknown) (no date) (unknown) [facility] (no value) [facility] Result panel 108 (unknown) (no date) (unknown) [facility] (no value) [facility] Result panel 109 (unknown) (no date) (unknown) [facility] (no value) [facility] Result panel 110 (unknown) (no date) (unknown) [facility] (no value) [facility] Result panel 111 (unknown) (no date) (unknown) [facility] (no value) [facility] Result panel 112 (unknown) (no date) (unknown) [facility] (no value) [facility] Result panel 113 (unknown) (no date) (unknown) [facility] (no value) [facility] Result panel 114 (unknown) (no date) (unknown) [facility] (no value) [facility] Result panel 115 (unknown) (no date) (unknown) [facility] (no value) [facility] Result panel 116 (unknown) (no date) (unknown) [facility] (no value) [facility] Result panel 117 (unknown) (no date) (unknown) [facility] (no value) [facility] Result panel 118 (unknown) (no date) (unknown) [facility] (no value) [facility] Result panel 119 (unknown) (no date) (unknown) [facility] (no value) [facility] Result panel 120 (unknown) (no date) (unknown) [facility] (no value) [facility] Result panel 121 (unknown) (no date) (unknown) [facility] (no value) [facility] Result panel 122 (unknown) (no date) (unknown) [facility] (no value) [facility] Result panel 123 (unknown) (no date) (unknown) [facility] (no value) [facility] Result panel 124 (unknown) (no date) (unknown) [facility] (no value) [facility] Result panel 125 (unknown) (no date) (unknown) [facility] (no value) [facility] Result panel 126 (unknown) (no date) (unknown) [facility] (no value) [facility] Result panel 127 (unknown) (no date) (unknown) [facility] (no value) [facility] Result panel 128 (unknown) (no date) (unknown) [facility] (no value) [facility] Result panel 129 (unknown) (no date) (unknown) [facility] (no value) [facility] Result panel 130 (unknown) (no date) (unknown) [facility] (no value) [facility] Result panel 131 (unknown) (no date) (unknown) [facility] (no value) [facility] Result panel 132 (unknown) (no date) (unknown) [facility] (no value) [facility] Social History date description facility 2022-04-04 00:00 Current every day smoker [facility] 2022-04-04 00:00 Current every day smoker [facility] 2022-04-04 00:00 Current every day smoker [facility] 2022-04-04 00:00 Current every day smoker [facility] 2022-04-04 00:00 Current every day smoker [facility] 2022-04-13 00:00 Current every day smoker [facility] 2022-04-13 00:00 Current every day smoker [facility] 2022-04-13 00:00 Current every day smoker [facility] [place] 2022-04-13 00:00 Current every day smoker [facility] [place] 2022-05-11 00:00 Current every day smoker [facility] [place] 2022-05-11 00:00 Current every day smoker [facility] [place] Vital Signs date measurement value units 2022-04-04 00:00 BMI 24.98 kg/m2 2022-04-04 00:00 BP_diastolic 77 mmHg 2022-04-04 00:00 BP_systolic 112 mmHg 2022-04-04 00:00 heart_rate 88 /min 2022-04-04 00:00 height_metric 176.53 cm 2022-04-04 00:00 height_standard 69.5 in 2022-04-04 00:00 respiration_rate 16 /min 2022-04-04 00:00 temperature_metric 36.5 C 2022-04-04 00:00 temperature_standard 97.7 F 2022-04-04 00:00 weight_metric 77.56 kg 2022-04-04 00:00 weight_standard 171 lb 2022-04-13 00:00 BMI 24.98 kg/m2 2022-04-13 00:00 BP_diastolic 93 mmHg 2022-04-13 00:00 BP_systolic 132 mmHg 2022-04-13 00:00 heart_rate 91 /min 2022-04-13 00:00 height_metric 176.53 cm 2022-04-13 00:00 height_standard 69.5 in 2022-04-13 00:00 respiration_rate 16 /min 2022-04-13 00:00 temperature_metric 36.5 C 2022-04-13 00:00 temperature_standard 97.7 F 2022-04-13 00:00 weight_metric 77.56 kg 2022-04-13 00:00 weight_standard 171 lb 2022-05-11 00:00 BMI 24.98 kg/m2 2022-05-11 00:00 BP_diastolic 84 mmHg 2022-05-11 00:00 BP_systolic 124 mmHg 2022-05-11 00:00 heart_rate 95 /min 2022-05-11 00:00 height_metric 176.53 cm 2022-05-11 00:00 height_standard 69.5 in 2022-05-11 00:00 respiration_rate 16 /min 2022-05-11 00:00 temperature_metric 36.5 C 2022-05-11 00:00 temperature_standard 97.7 F 2022-05-11 00:00 weight_metric 77.56 kg 2022-05-11 00:00 weight_standard 171 lb
== END 2022-06-02 22:00 | disposition left against medical advice (07) ==
LOC: ED 21:40
DX: Z53.21 Procedure and treatment not carried out due to patient leaving prior to being seen by health care provider (principal)

== ENCOUNTER 2023-01-16 15:50 | Emergency (ER) | payer OTHER ==
[2023-01-16 15:58] VITALS: BP 130/70; O2SAT 98
== END 2023-01-16 16:46 | disposition left against medical advice (07) ==
LOC: ED 15:50
DX: Z53.21 Procedure and treatment not carried out due to patient leaving prior to being seen by health care provider (principal)

== ENCOUNTER 2023-01-23 17:13 | Emergency (ER) | payer OTHER ==
[2023-01-23 17:30] VITALS: O2SAT 100
--- NOTE | 2023-01-23 19:40 | ED Physician Documentation ---
PD HPI DYSPNEA - Stated complaint Stated Complaint: SOA - Chief complaint Chief Complaint: Resp - History obtained from History obtained from: Patient - Additional information Additional information: She is been short of breath for the last the last 4 days. She feels like she cannot take a deep breath. This is never happened to her before. She has no history of heart or lung problems. She doubts any possibility of , just had her period. She also has Nexplanon in place. 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 : Chronic bladder infection HEENT: None Psych: Depression, Anxiety, Panic attacks, ADD/ADHD, Eating disorder Musculoskeletal: Scoliosis Derm: Psoriasis - Past Surgical History Past Surgical History: Yes General: Appendectomy - Present Medications Home Medications: Ambulatory Orders Medication Instructions Recorded Confirmed Dextroamphetamine/Amphetamine 20 mg PO QPM 06/15/20 09/05/20 [Adderall 15 mg Tablet] Dextroamphetamine/Amphetamine 30 mg PO DAILY 06/15/20 09/05/20 [Adderall Xr 25 mg Capsule] ARIPiprazole [Abilify] 20 mg PO DAILY PM 06/05/21 06/05/21 Buspirone HCl 20 mg ORAL BID 06/05/21 06/05/21 Etonogestrel [Nexplanon] 68 mg SQ ONCE 06/05/21 06/05/21 lamoTRIgine [LaMICtal] 100 mg PO DAILY 06/05/21 06/05/21 Gabapentin [Neurontin] 400 mg PO BID 06/02/22 06/02/22 - Allergies Allergies/Adverse Reactions: Allergies Allergy/AdvReac Type Severity Reaction Status Date / Time bupropion [From Wellbutrin] Allergy Unknown Verified 01/16/23 15:54 cefprozil [From Cefzil] AdvReac Hives Verified 01/16/23 15:54 - Social History Does the pt smoke?: Yes Smoking Status: Current every day smoker Does the pt drink ETOH?: No Does the pt have substance abuse?: No - Immunizations Immunizations are current?: Yes - POLST Patient has POLST: No PD ED PE NORMAL - Vitals Vital signs reviewed: Yes (Tachypneic and tachycardic) - General General: Alert and oriented X 3, No acute distress - Cardiac Cardiac: RRR, No murmur - Respiratory Respiratory: No respiratory distress, Other (Speaking full sentences, almost absent breath sounds right base.) - Abdomen Abdomen: Non tender - Extremities Extremities: No edema, No calf tenderness / cord - Neuro Neuro: Alert and oriented X 3, Normal speech Results - Vitals Vitals: Vital Signs - 24 hr 01/23/23 01/23/23 17:18 19:30 Temperature 36.6 C Heart Rate 107 H 86 Respiratory 28 H 18 Rate Blood Pressure 141/92 H 117/81 H O2 Saturation 100 100 Oxygen O2 Source Room air - Labs Labs: Laboratory Tests 01/23/23 01/23/23 01/23/23 19:48 19:53 19:53 WBC 9.0 RBC 4.41 Hgb 13.0 Hct 39.9 MCV 90.5 MCH 29.5 MCHC 32.6 RDW 13.5 Plt Count 398 MPV 8.9 Neut # (Auto) 5.8 Lymph # (Auto) 2.6 [place] # (Auto) 0.5 Eos # (Auto) 0.2 Baso # (Auto) 0.0 Absolute Nucleated RBC 0.00 Nucleated RBC % 0.0 D-Dimer Sodium 138 Potassium 3.6 Chloride 105 Carbon Dioxide 26 Anion Gap 7.0 BUN 8 Creatinine 0.8 Estimated GFR (MDRD) 87 L Glucose 93 Calcium 10.2 Urine Color YELLOW Urine Clarity CLEAR Urine pH 6.0 Ur Specific [place] >=1.030 H Urine Protein NEGATIVE Urine Glucose (UA) NEGATIVE Urine Ketones NEGATIVE Urine Occult Blood NEGATIVE Urine Nitrite NEGATIVE Urine Bilirubin NEGATIVE Urine Urobilinogen 0.2 (NORMAL) Ur Leukocyte Esterase NEGATIVE Ur Microscopic Review NOT INDICATED Urine Culture Comments NOT INDICATED Urine HCG, Qual NEGATIVE 01/23/23 20:15 WBC RBC Hgb Hct MCV MCH MCHC RDW Plt Count MPV Neut # (Auto) Lymph # (Auto) [place] # (Auto) Eos # (Auto) Baso # (Auto) Absolute Nucleated RBC Nucleated RBC % D-Dimer < 200.0 L Sodium Potassium Chloride Carbon Dioxide Anion Gap BUN Creatinine Estimated GFR (MDRD) Glucose Calcium Urine Color Urine Clarity Urine pH Ur Specific [place] Urine Protein Urine Glucose (UA) Urine Ketones Urine Occult Blood Urine Nitrite Urine Bilirubin Urine Urobilinogen Ur Leukocyte Esterase Ur Microscopic Review Urine Culture Comments Urine HCG, Qual PD Medical Decision Making - ED course ED course: Initially she seemed to have decreased breath sounds in the right base. This resolves after subsequent exam so it may be a mucous plug? Her chest x-ray was clear and remainder of her work-up including D-dimer, CBC, BMP, UA and test was negative. We discussed sort of nonprimary medical causes of shortness of breath and she admits she has been under an incredible amount of stress over the last couple of weeks with debts, new financial plan, interviewing for jobs, traveling to [place], and her dog got sick. She would like to restart buspirone and has some at home so does not need a prescription. Departure - Departure Disposition: , Self Care Clinical Impression: Dyspnea Qualifiers: Dyspnea type: shortness of breath Qualified Code(s): R06.02 - Shortness of breath; R06.00 - Dyspnea, unspecified; R06.01 - Orthopnea Condition: Good Record reviewed to determine appropriate education?: Yes Instructions: ED Dyspnea Shortness of Breath Comments: As discussed, extensive medical testing including chest x-ray, lab work including a screening test for blood clots was unremarkable. Given everything that is going on presume stress may be playing a part. Okay to start buspirone at prior dose. Call your doctor to arrange a follow-up appointment, make the next available appointment. In the interim, return anytime if worse or if new symptoms develop.
[2023-01-23 20:02] LABS: BILIRUBIN,URINE NEGATIVE (NEGATIVE); GLUCOSE, URINE (UA) NEGATIVE (NEGATIVE); KETONES,URINE (UA) NEGATIVE (NEGATIVE); LEUKOCYTE ESTERASE, URINE NEGATIVE (NEGATIVE); NITRITE,URINE NEGATIVE (NEGATIVE); OCCULT BLOOD,URINE NEGATIVE (NEGATIVE); PROTEIN,URINE NEGATIVE (NEGATIVE); UROBILINOGEN,URINE 0.2 (NORMAL) E.U./dL (NORMAL)
[2023-01-23 20:04] LABS: CLARITY,URINE CLEAR (CLEAR); HCG UR QUAL NEGATIVE
[2023-01-23 20:09] LABS: BASOPHILS % (AUTO) 0.4 %; EOSINOPHILS # (AUTO) 0.2 10^3/uL (0.0-0.7); EOSINOPHILS % (AUTO) 1.7 %; HCT - HEMATOCRIT 39.9 % (37.0-47.0); LYMPHOCYTES # (AUTO) 2.6 10^3/uL (1.5-3.5); LYMPHOCYTES % (AUTO) 28.3 %; MEAN CORPUSCULAR HEMOGLOBIN 29.5 pg (27.0-31.0); MEAN CORPUSCULAR HGB CONC 32.6 g/dL (32.0-36.0); MEAN CORPUSCULAR VOLUME 90.5 fL (81.0-99.0); MEAN PLATELET VOLUME 8.9 fL (7.9-10.8); MONOCYTES # (AUTO) 0.5 10^3/uL (0.0-1.0); NEUTROPHILS # (AUTO) 5.8 10^3/uL (1.5-6.6); NEUTROPHILS % (AUTO) 64.4 %; PLT - PLATELET COUNT 398 10^3/uL (130-450); RED BLOOD COUNT 4.41 10^6/uL (4.20-5.40); RED CELL DISTRIBUTION WIDTH 13.5 % (12.0-15.0)
[2023-01-23 20:16] LABS: CALCIUM 10.2 mg/dL (8.5-10.3); CREATININE 0.8 mg/dL (0.6-1.3); POTASSIUM 3.6 mmol/L (3.5-4.5)
--- NOTE | 2023-01-23 20:35 | XRAY Report ---
PROCEDURE: Chest 2 View X-Ray INDICATIONS: dyspnea, no bs r base TECHNIQUE: 2 views of the chest were acquired. COMPARISON: None. FINDINGS: Surgical changes and devices: None. Lungs and pleura: No pleural effusions or pneumothorax. Lungs are clear. Mediastinum: Mediastinal contours appear normal. Heart size is normal. Bones and chest wall: No suspicious bony lesions. Overlying soft tissues appear unremarkable. IMPRESSION: No acute cardiopulmonary process. Reviewed by: Bjorn Duran MD on 01/23/2023 8:34 PM PDT Approved by: Bjorn Duran MD on 01/23/2023 8:34 PM PDT Station ID: [id number]
[2023-01-23 21:13] VITALS: BP 115/75
== END 2023-01-23 21:07 | disposition home or self-care (01) ==
LOC: ED 17:13
DX: R06.02 Shortness of breath (principal); R06.01 Orthopnea; F17.200 Nicotine dependence, unspecified, uncomplicated
CPT/HCPCS: 36415; 80048; 81001; 81003; 81025; 85025; 85379; 87086; 99283; 99284

== ENCOUNTER 2023-04-05 06:22 | Emergency (ER) | payer OTHER ==
[2023-04-05 08:14] LABS: BASOPHILS % (AUTO) 0.7 %; EOSINOPHILS # (AUTO) 0.1 10^3/uL (0.0-0.7); EOSINOPHILS % (AUTO) 1.8 %; HCT - HEMATOCRIT 36.9 % (37.0-47.0); HGB - HEMOGLOBIN 12.4 g/dL (12.0-16.0); LYMPHOCYTES # (AUTO) 1.5 10^3/uL (1.5-3.5); MEAN CORPUSCULAR HEMOGLOBIN 28.7 pg (27.0-31.0); MEAN CORPUSCULAR HGB CONC 33.6 g/dL (32.0-36.0); MEAN CORPUSCULAR VOLUME 85.4 fL (81.0-99.0); MEAN PLATELET VOLUME 8.3 fL (7.9-10.8); MONOCYTES # (AUTO) 0.4 10^3/uL (0.0-1.0); NEUTROPHILS # (AUTO) 2.5 10^3/uL (1.5-6.6); NEUTROPHILS % (AUTO) 55.3 %; PLT - PLATELET COUNT 284 10^3/uL (130-450); RED BLOOD COUNT 4.32 10^6/uL (4.20-5.40); RED CELL DISTRIBUTION WIDTH 12.3 % (12.0-15.0); WHITE BLOOD COUNT 4.4 x10^3/uL (4.8-10.8)
[2023-04-05 08:32] LABS: ALBUMIN 4.8 g/dL (3.2-5.5); ALBUMIN/GLOBULIN RATIO 1.8 (1.0-2.2); ALKALINE PHOSPHATASE 56 IU/L (42-121); ALT ALANINE AMINOTRANSFERASE 8 IU/L (10-60); AST ASPARTATE AMINOTRANSFERASE 11 IU/L (10-42); BILIRUBIN,TOTAL 0.6 mg/dL (0.2-1.0); BUN - BLOOD UREA NITROGEN 10 mg/dL (6-20); CALCIUM 9.6 mg/dL (8.5-10.3); CARBON DIOXIDE - CO2 27 mmol/L (21-32); CHLORIDE 105 mmol/L (101-111); CREATININE 0.7 mg/dL (0.6-1.3); ETOH - ETHANOL < 10.0 mg/dL; GFR - MDRD 102 (>89); GLUCOSE 96 mg/dL (74-104); POTASSIUM 3.9 mmol/L (3.5-4.5); SODIUM 138 mmol/L (135-145); TOTAL PROTEIN 7.4 g/dL (6.4-8.9)
[2023-04-05 08:45] VITALS: O2SAT 98
[2023-04-05 08:45] LABS: LIPASE < 10 U/L (11-82)
--- NOTE | 2023-04-05 08:48 | ED Physician Documentation ---
History of Present Illness - Stated complaint Stated Complaint: MED OD - Chief complaint Chief Complaint: General - History obtained from History obtained from: Patient - History of Present Illness Timing: Enter time (444), Today - Additonal information Additional information: Daniele Dennis is a 27-year-old female with a history of ADHD who has been on Vyvanse for years. She is on a high dose of 60 mg daily and she usually takes a 50 mg tablet and a 10 mg tablet as there is a general shortage and they are not able to give her her 60 mg tablets. This morning in a fog she woke up and took 2 of the 50 mg tablets and then took a 10 mg tablet. She did feel some initial effects of this. She has come to the emergency department for evaluation after calling poison control. 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 : Chronic bladder infection HEENT: None Psych: Depression, Anxiety, Panic attacks, ADD/ADHD, Eating disorder Musculoskeletal: Scoliosis Derm: Psoriasis - Past Surgical History Past Surgical History: Yes General: Appendectomy - Present Medications Home Medications: Ambulatory Orders Medication Instructions Recorded Confirmed Dextroamphetamine/Amphetamine 20 mg PO QPM 06/15/20 09/05/20 [Adderall 15 mg Tablet] Dextroamphetamine/Amphetamine 30 mg PO DAILY 06/15/20 09/05/20 [Adderall Xr 25 mg Capsule] ARIPiprazole [Abilify] 20 mg PO DAILY PM 06/05/21 06/05/21 Buspirone HCl 20 mg ORAL BID 06/05/21 06/05/21 Etonogestrel [Nexplanon] 68 mg SQ ONCE 06/05/21 06/05/21 lamoTRIgine [LaMICtal] 100 mg PO DAILY 06/05/21 06/05/21 Gabapentin [Neurontin] 400 mg PO BID 06/02/22 06/02/22 - Allergies Allergies/Adverse Reactions: Allergies Allergy/AdvReac Type Severity Reaction Status Date / Time bupropion [From Wellbutrin] Allergy Unknown Verified 01/16/23 15:54 cefprozil [From Cefzil] AdvReac Hives Verified 01/16/23 15:54 - Social History Does the pt smoke?: Yes Smoking Status: Current every day smoker Does the pt drink ETOH?: No Does the pt have substance abuse?: No - Immunizations Immunizations are current?: Yes - POLST Patient has POLST: No PD ED PE NORMAL - Vitals Vital signs reviewed: Yes (tachy to 100) - General General: Alert and oriented X 3, No acute distress, Well developed/nourished - HEENT HEENT: Atraumatic, PERRL, EOMI - Neck Neck: Supple, no meningeal sign, No bony TTP - Cardiac Cardiac: RRR, No murmur - Respiratory Respiratory: No respiratory distress, Clear bilaterally - Abdomen Abdomen: Normal bowel sounds, Soft, Non tender, Non distended, No organomegaly - Back Back: No CVA TTP, No spinal TTP - Derm Derm: Normal color, Warm and dry, No rash - Neuro Neuro: Alert and oriented X 3, sales systems engineer 2-12 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, No motor deficit, No sensory deficit, Normal speech Eye Opening: Spontaneous Motor: Obeys Commands Verbal: Oriented GCS Score: 15 - Psych Psych: Normal mood, Normal affect Results - Vitals Vitals: Vital Signs - 24 hr 04/05/23 04/05/23 04/05/23 06:31 06:36 08:34 Temperature 36.8 C 36.8 C Heart Rate 102 H 100 90 Respiratory 20 20 20 Rate Blood Pressure 128/74 130/74 128/71 O2 Saturation 100 100 98 04/05/23 09:15 Temperature Heart Rate 97 Respiratory 28 H Rate Blood Pressure 124/84 H O2 Saturation 98 Oxygen O2 Source Room air - EKG (time done) 0823 EKG releavant findings:: EKG personally interpreted by author of this note. Relevant findings are: Rate: Rate (enter#) (86) Rhythm: LAE Computer interpretation: Agree with computer - Labs Labs: Laboratory Tests 04/05/23 04/05/23 08:08 08:08 WBC 4.4 L RBC 4.32 Hgb 12.4 Hct 36.9 L MCV 85.4 MCH 28.7 MCHC 33.6 RDW 12.3 Plt Count 284 MPV 8.3 Neut # (Auto) 2.5 Lymph # (Auto) 1.5 [place] # (Auto) 0.4 Eos # (Auto) 0.1 Baso # (Auto) 0.0 Absolute Nucleated RBC 0.00 Nucleated RBC % 0.0 Sodium 138 Potassium 3.9 Chloride 105 Carbon Dioxide 27 Anion Gap 6.0 BUN 10 Creatinine 0.7 Estimated GFR (MDRD) 102 Glucose 96 Calcium 9.6 Total Bilirubin 0.6 AST 11 ALT 8 L Alkaline Phosphatase 56 Total Protein 7.4 Albumin 4.8 Globulin 2.6 Albumin/Globulin Ratio 1.8 Lipase < 10 L Ethyl Alcohol < 10.0 PD Medical Decision Making - ED course Complexity details: reviewed old records, reviewed results, re-evaluated patient, considered differential, d/w patient Reviewed Lab Results: We reviewed a complete blood count showing a white blood cell count depressed at 4.4 a normal hemoglobin at 12.4 and a mildly depressed hematocrit at 36.9 consistent with what the patient has had previously chemistries show normal electrolytes normal kidney and liver function toxicology showed shows ethyl alcohol less than 10. These laboratory studies did not lend to a specific diagnosis they did allow us to be more confident with normal electrolytes. ED course: 27-year-old Mis Dennis took an extra 50 mg of Vyvanse this morning accidentally and she called poison control. They recommended she come to the emergency department Poison control recommended we did administer observe the patient for 6 hours and check her electrocardiogram and if QT interval was prolonged to check electrolytes. We observe the patient in the emergency department we did check electrolytes they were normal we checked the QT interval and it was normal as well. The patient indicated that she had been on these high doses of Vyvanse for some time and she felt the effects of the Vyvanse extra dose initially she now feels normal and wants to go home. She wants to sign out AGAINST MEDICAL ADVICE. Our advice what to the patient was to stay in our department for 6 hours for observation as recommended by poison control and the patient confidently signed the AMA forms. Departure - Departure Disposition: 07 Against Medical Advice Clinical Impression: Overdose by amphetamine Qualifiers: Encounter type: initial encounter Injury intent: accidental or unintentional Qualified Code(s): T43.621A - Poisoning by amphetamines, accidental (unintentional), initial encounter Condition: Stable Instructions: ED Overdose Accidental Follow-Up: CHRISTIN WADE ARNP [Primary Care Provider] - Comments: Mis poison control has recommended that you stay in our facility for 6 lucio rs of observation. We have evaluated you and found that your electrolytes are normal and your QT interval on your electrocardiogram is normal as well. Your heart rate has come down into the 90s and we are not expecting further issues. We are offering to host you here for the 6 hours of observation which you are refusing. There is a risk of excessively fast heart rate and potential damage to your heart. Discharge Date/Time: 04/05/23 09:19
[2023-04-05 09:16] VITALS: BP 124/84
== END 2023-04-05 09:19 | disposition left against medical advice (07) ==
LOC: ED 06:22
DX: T43.621A Poisoning by amphetamines, accidental (unintentional), initial encounter (principal); F17.200 Nicotine dependence, unspecified, uncomplicated
CPT/HCPCS: 36415; 80053; 80320; 83690; 85025; 93005; 99283; 99284

== ENCOUNTER 2024-02-28 19:50 | Emergency (ER) | payer OTHER ==
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
[2024-02-28 21:14] LABS: HCG UR QUAL NEGATIVE
[2024-02-28 21:44] VITALS: BP 126/68; O2SAT 98
== END 2024-02-28 21:35 | disposition home or self-care (01) ==
LOC: ED 19:50
DX: R51.9 Headache, unspecified (principal); R00.2 Palpitations; F17.200 Nicotine dependence, unspecified, uncomplicated
CPT/HCPCS: 81025; 99282